=== PATIENT | female | born 1950 | race Caucasian/White ===

== ENCOUNTER → 2018-02-06 14:13 | Outpatient (CLI) | payer MEDICARE, BC, SELFPAY | PROVIDERS: Visit Provider Physician Assistant | DX: M81.0 Age-related osteoporosis without current pathological fracture (principal) | CPT/HCPCS: 77080 ==

== ENCOUNTER → 2021-12-20 12:08 | Outpatient (CLI) | payer MEDICARE, BC, SELFPAY | PROVIDERS: PCP Student in an Organized Health Care Education/Training Program; Referring Provider Student in an Organized Health Care Education/Training Program; Visit Provider Student in an Organized Health Care Education/Training Program | DX: M81.0 Age-related osteoporosis without current pathological fracture (principal); R06.9 Unspecified abnormalities of breathing; Z78.0 Asymptomatic menopausal state | CPT/HCPCS: 77080 ==

== ENCOUNTER 2022-06-22 22:37 | Emergency (ER) | payer MEDICARE, BC, SELFPAY ==
[2022-06-22 22:50] VITALS: BP 126/58; PULSE 87; RESP 20; TEMP 36.1; O2SAT 98; BMI 24.3
--- NOTE | 2022-06-22 23:07 | DI.RAD.S_ITS ---
PROCEDURE: XR CHEST 1V INDICATIONS: chest pain TECHNIQUE: One view of the chest was acquired. COMPARISON: None. FINDINGS: Surgical changes and devices: None. Lungs and pleura: Lungs are clear. No pleural effusions or pneumothorax. Mediastinum: Mediastinal contours appear normal. Heart size is normal. Bones and chest wall: No suspicious bony lesions. Overlying soft tissues appear unremarkable. IMPRESSION: 1. No acute cardiopulmonary disease. Dictated by: Junior Elliott M.D. on 06/23/2022 at 0:17 Approved by: Junior Elliott M.D. on 06/23/2022 at 0:18
[2022-06-22 23:28] LABS: Add Manual Diff / Slide Review NO; Basophils Absolute Auto 0 /uL (0-100); Basophils Percent Auto 0.6 % (0-2); Eosinophils Absolute Auto 0 /uL (0-450); Eosinophils Percent Auto 0.2 % (2-4); Hematocrit 40.9 % (36-46); Lymphocytes Absolute Auto 800 /uL (1100-4500); Lymphocytes Percent Auto 12.5 % (25-40); Mean Corpuscular HGB Conc 34.3 % (30-36); Mean Corpuscular Hemoglobin 30.9 PG (26-34); Mean Corpuscular Volume 90.1 fL (80-100); Monocytes Absolute Auto 300 /uL (0-900); Monocytes Percent Auto 4.1 % (3-14); Neutrophils Absolute Auto 5500 /uL (1500-7000); Neutrophils Percent Auto 82.6 % (50-75); Platelet Count 207 X10^3/uL (150-400); Red Blood Cell Count 4.54 X10^6/uL (4.0-5.2); Red Cell Distribution Width 14.2 % (11.6-14.8); White Blood Cell Count 6.7 X10^3/uL (4.5-11.0)
[2022-06-22 23:36] LABS: Alanine Aminotransferase 16 IU/L (<35); Albumin 4.7 g/dL (3.5-5.0); Albumin Globulin Ratio 1.4 (1.0-2.8); Alkaline Phosphatase 37 U/L (38-126); Aspartate Aminotransferase 25 IU/L (14-36); BUN Creatinine Ratio 29.2 (6-22); Bilirubin Total 0.5 mg/dL (0.2-1.3); Blood Urea Nitrogen 19 mg/dL (7-17); Calcium 9.2 mg/dL (8.4-10.2); Carbon Dioxide 23 mmol/L (22-32); Chloride 105 mmol/L (98-107); Creatine Kinase 54 U/L (30-135); Estimated Glomerular Filt Rate > 60 mL/min (>60); Globulin 3.4 g/dL (1.7-4.1); Glucose 132 mg/dL (80-110); HEMOLYSIS < 15 (0-50); Lipase 79 U/L (23-300); Potassium 3.5 mmol/L (3.4-5.1); Sodium 140 mmol/L (137-145); Total Protein 8.1 g/dL (6.3-8.2)
--- NOTE | 2022-06-22 23:45 | ED.DIZZY ---
HPI - Dizziness General Chief Complaint: Dizziness Stated Complaint: Vertigo Time Seen by Provider: 06/22/22 22:48 History of Present Illness HPI Narrative: 72-year-old female nonsmoker presents with her in the chief complaint of a sudden onset and profound dizziness earlier tonight. She has had episodes of dizziness in the past and has been diagnosed with vertigo and states this feels the same. She admits to dizziness in the sense that everything is spinning it seems to be worse when she moves her head or her body and improves when she remains still or closes her eyes. She denies blurred vision or trouble with speech. She denies any extremity numbness, tingling or weakness. She denies any recent trauma, head injury or neck pain. She is had no fever or chills and denies blood thinners. She denies blurred or double vision and has had no trouble with speech. She denies any recent trauma all, flights, scuba diving. She has had some nasal congestion and fullness in her ears for the better part of a month. She was seen and evaluated at another facility relatively recently and had been diagnosed with vertigo was given no prescriptions Related Data Home Medications Medication Instructions Recorded Confirmed BUTALB/ACETAMINOPHEN/CAFFEINE 1 cap PO ##0 03/28/17 50/300/40 (Fioricet 50/300/40 MG) alendronate 70 mg tablet (Fosamax) 70 mg PO QWEEK ##0 03/28/17 Previous Rx's Medication Instructions Recorded [ESTRADIOL VAG PEARLS] 25 mcg vaginal SEE INSTRUCTIONS 03/28/17 #18 tabs meclizine 25 mg tablet 25 mg PO BID-TID PRN dizziness #14 06/23/22 tabs ondansetron 4 mg disintegrating 4 mg PO TID-QID PRN nausea and 06/23/22 tablet vomiting #10 tabs Allergies Allergy/AdvReac Type Severity Reaction Status Date / Time cephalexin [CEPHALEXIN] Allergy Unknown Verified 06/22/22 23:03 codeine [CODEINE] Allergy Unknown Verified 06/22/22 23:03 levofloxacin [From LEVAQUIN] Allergy Unknown Verified 06/22/22 23:03 Review of Systems Review of Systems Narrative: GENERAL: Denies chills, fatigue, malaise, fever, sweats. HEENT: See HPI RESPIRATORY: Denies dyspnea, cough, wheezing, hemoptysis, sputum. CARDIOVASCULAR: Denies chest pain, palpitations, orthopnea, edema, GASTROINTESTINAL: Denies nausea, vomiting, abdominal pain, diarrhea, constipation, melena. : Denies dysuria, frequency, incontinence, hematuria, urinary retention. MUSCULOSKELETAL: denies weakness, joint pain, or bony pain SKIN: Denies rash, skin lesions, or other NEUROLOGIC: See HPI PSYCHIATRIC: No concerning psychosocial issues. 12 point review of systems is negative except for those stated above Patient History Social History Smoking Status: Never smoker Smoking Status: Never smoker Exam Narrative Exam Narrative: GENERAL: [72] year old patient appears stated age. Well-developed patient, in mild distress. GCS 15 HEAD: Atraumatic. Normocephalic. EYES: Pupils equal round and reactive. Extraocular motions intact. No scleral icterus. No injection or drainage. ENT: Nose without bleeding, purulent drainage. Throat without erythema, tonsillar hypertrophy or exudate. Airway patent. NECK: Trachea midline. Non tender CARDIOVASCULAR: Regular rate and rhythm without murmurs, gallops, or rubs. RESPIRATORY: Clear to auscultation. Breath sounds equal bilaterally. No wheezes, rales, or rhonchi. GASTROINTESTINAL: Abdomen soft, non-tender, nondistended. EXTREMITIES: No edema or joint tenderness. BACK: Nontender without deformity or crepitance. No flank tenderness. NEURO: AOx3. SKIN: No rash or erythema of visible areas Initial Vital Signs Initial Vital Signs: Vital Signs Temperature 97 F L 06/22/22 22:50 Pulse Rate 87 06/22/22 22:50 Respiratory Rate 20 06/22/22 22:50 Blood Pressure 126/58 L 06/22/22 22:50 Pulse Oximetry 98 06/22/22 22:50 Oxygen Delivery Method 06/22/22 22:50 Course Orders Ordered: ED Orders 06/22/22 23:07 XR chest 1V Stat 06/22/22 23:18 Complete Blood Count AUTO DIFF Stat Comprehensive Metabolic Panel Stat Lipase Stat Magnesium Stat Troponin & CK Cardiac Panel Stat 06/22/22 23:29 EKG-12 Lead Stat Discontinued Medications Sodium Chloride (Normal Saline 0.9%) 1,000 mls @ 1,000 mls/hr IV BOLUS ONE Stop: 06/23/22 01:02 Last Admin: 06/23/22 01:44 Dose: Not Given Documented By: GORGE Meclizine HCl (Meclizine Hcl 12.5 Mg Tablet) 50 mg PO NOW ONE Stop: 06/23/22 00:04 Last Admin: 06/23/22 01:36 Dose: 50 mg Documented By: GORGE Ondansetron HCl (Ondansetron 4 Mg/2 Ml Inj) 4 mg IV NOW ONE Stop: 06/23/22 00:04 Last Admin: 06/23/22 01:36 Dose: 4 mg Documented By: GORGE Ondansetron HCl (Ondansetron 4 Mg Odt Prepack) 1 bottle MISC SEEINSTR ONE Stop: 06/23/22 02:01 Last Admin: 06/23/22 02:08 Dose: 1 bottle Documented By: KELVIN Reevaluation(s) Reevaluation #1: Patient feeling significant if not complete resolution of symptoms after above-stated therapies. She is able to ambulate through the department without any ongoing dizziness or vertigo Vital Signs Vital signs: Vital Signs - 8 hr 06/22/22 22:50 Temperature 97 F L Pulse Rate 87 Respiratory Rate 20 Blood Pressure 126/58 L Pulse Oximetry 98 Oxygen Delivery Method Room Air MDM - Dizziness Lab Data Result diagrams: 06/22/22 23:18 06/22/22 23:18 Labs: Lab Results 06/22/22 06/22/22 Range/Units 23:18 23:18 WBC 6.7 (4.5-11.0) X10^3/uL RBC 4.54 (4.0-5.2) X10^6/uL Hgb 14.0 (12.0-16.0) g/dL Hct 40.9 (36-46) % MCV 90.1 (80-100) fL MCH 30.9 (26-34) PG MCHC 34.3 (30-36) % RDW 14.2 (11.6-14.8) % Plt Count 207 (150-400) X10^3/uL Neut % (Auto) 82.6 H (50-75) % Lymph % (Auto) 12.5 L (25-40) % [place] % (Auto) 4.1 (3-14) % Eos % (Auto) 0.2 L (2-4) % Baso % (Auto) 0.6 (0-2) % Neut # (Auto) 5500 (5743-6959) /uL Lymph # (Auto) 800 L (0601-0042) /uL [place] # (Auto) 300 (0-900) /uL Eos # (Auto) 0 (0-450) /uL Baso # (Auto) 0 (0-100) /uL Sodium 140 (137-145) mmol/L Potassium 3.5 (3.4-5.1) mmol/L Chloride 105 (98-107) mmol/L Carbon Dioxide 23 (22-32) mmol/L BUN 19 H (7-17) mg/dL Creatinine 0.65 (0.52-1.04) mg/dL Estimated GFR > 60 (>60) mL/min BUN/Creatinine Ratio 29.2 H (6-22) Glucose 132 H (80-110) mg/dL Calcium 9.2 (8.4-10.2) mg/dL Magnesium 2.0 (1.6-2.3) mg/dL Total Bilirubin 0.5 (0.2-1.3) mg/dL AST 25 (14-36) IU/L ALT 16 (<35) IU/L Alkaline Phosphatase 37 L (38-126) U/L Total Creatine Kinase 54 (30-135) U/L CK-MB (CK-2) TNP CK-MB (CK-2) Rel Index TNP Troponin I < 0.012 (0.01-0.034) ng/mL Total Protein 8.1 (6.3-8.2) g/dL Albumin 4.7 (3.5-5.0) g/dL Globulin 3.4 (1.7-4.1) g/dL Albumin/Globulin Ratio 1.4 (1.0-2.8) Lipase 79 (23-300) U/L MDM Narrative Medical decision making narrative: Patient has a very reassuring history and physical exam and complains of a reproducible profound dizziness that lasts about 1 minute and is improved with rest and closing eyes. She has no other neurologic symptoms. Symptoms significantly improved if not completely improved after typical therapies. Return precautions discussed and questions answered to her apparent satisfaction Discharge Plan Departure Patient Disposition: Home Clinical Impression: Vertigo Instructions: DI for Vertigo Activity Restrictions/Additional Instructions: *You have been diagnosed with [peripheral vertigo. As we discussed your history and physical exam as well as] *What to do: *Please continue to take your regular medications as directed. [ x] New medication prescriptions sent to your pharmacy: [[facility] ] [ ] New medication written as a paper prescription [ ] No new medications given *Please follow up with your primary care provider in 2-3 days, call for an appointment. Let them know you were seen in the Emergency Department and that we ask that you be seen in follow up. We will electronically transmit a record of today's note if your PCP is in our system * as we discussed I have given you the contact information for [facility], please call their office later today and let them know you were seen in the emergency department and we would like you seen in follow-up *Return to Emergency Department if you should have any new, worsening or concerning symptoms Prescriptions: New meclizine 25 mg tablet 25 mg PO BID-TID PRN (Reason: dizziness) Qty: 14 0RF ondansetron 4 mg tablet,disintegrating 4 mg PO TID-QID PRN (Reason: nausea and vomiting) Qty: 10 0RF No Action alendronate [Fosamax] 70 MG tablet 70 mg PO QWEEK Qty: 0 BUTALB/ACETAMINOPHEN/CAFFEINE 50/300/40 (Fioricet 50/300/40 MG) 1 cap PO Qty: 0 [ESTRADIOL VAG PEARLS] 25 mcg Vaginal SEE INSTRUCTIONS Qty: 18 PRNRF Referrals: Zonia Mike PA-C [Primary Care Provider] - Visit Report Forms: Patient Portal/API
[2022-06-22 23:47] LABS: Troponin I < 0.012 ng/mL (0.01-0.034)
[2022-06-23] MEDS: ONDANSETRON 4 MG/2 ML INJ IV (01:36)
[2022-06-23] MEDS: MECLIZINE HCL 12.5 MG TABLET 50 MG PO (01:36)
[2022-06-23] MEDS: ONDANSETRON 4 MG ODT PREPACK 1 BOTTLE MISC (02:08)
== END 2022-06-23 02:16 | disposition home or self-care (01) ==
PROVIDERS: Emergency Provider Emergency Medicine; PCP Student in an Organized Health Care Education/Training Program
DX: R42 Dizziness and giddiness (principal); R07.9 Chest pain, unspecified
CPT/HCPCS: 36415; 71045; 80053; 82550; 83690; 83735; 84484; 85025; 93005; 96374; 99284; J2405

== ENCOUNTER 2024-06-23 13:24 | Inpatient (IN) | payer MEDICARE, SELFPAY ==
[2024-06-23] VITALS (11 sets, daily range): BP systolic 121–143; BP diastolic 60–72; PULSE 76–97; RESP 12–24; TEMP 36.4–37.4; O2SAT 96–98; BMI 24.5
--- NOTE | 2024-06-23 13:35 | ED.LOWEXIN ---
HPI - Extremity Injury (Lower) General Chief Complaint: Extremity Injury, Lower Stated Complaint: GLF, L hip pain Time Seen by Provider: 06/23/24 13:24 History of Present Illness HPI Narrative: Patient is a 74-year-old female history of vertigo presenting today with left hip pain after fall. She reports that she was running to get similar when she tripped over garden hose landing on her left hip. She denies hitting her head or loss of consciousness no neck pain. She is unable to stand or bear weight. No other injuries. Not on any antiplatelet or antiplatelet medications Related Data Previous Rx's Medication Instructions Recorded meclizine 25 mg tablet 25 mg PO BID-TID PRN dizziness #14 06/23/22 tabs Allergies Allergy/AdvReac Type Severity Reaction Status Date / Time cephalexin [CEPHALEXIN] Allergy Unknown Verified 06/22/22 23:03 codeine [CODEINE] Allergy Unknown Verified 06/22/22 23:03 levofloxacin [From LEVAQUIN] Allergy Unknown Verified 06/22/22 23:03 Patient History Social History household members: spouse Smoking Status: Never smoker alcohol intake: current Smoking Status: Never smoker Exam Initial Vital Signs Initial Vital Signs: Vital Signs Temperature 97.5 F L 06/23/24 13:25 Pulse Rate 79 06/23/24 13:25 Respiratory Rate 16 06/23/24 13:25 Blood Pressure 140/72 06/23/24 13:25 Pulse Oximetry 97 06/23/24 13:25 Oxygen Delivery Method Room Air 06/23/24 13:25 GENERAL: Alert pleasant well-appearing 74-year-old female HEENT: Head atraumatic,EOMI, pupils reactive, face symmetric, [moist] mucous membranes CARDIOVASCULAR: Regular rate and rhythm without murmurs, rubs or gallops. RESPIRATORY: Breath sounds equal bilaterally, no wheezes rales or rhonchi. ABDOMEN: Soft, nontender. Normoactive bowel sounds all 4 quadrants. No guarding or rebound. EXTREMITIES: Normal range of motion, no clubbing or edema. Neurovascularly intact Pelvis stable right leg within normal limits left no significant shortening distal pedal pulse intact NEUROLOGICAL: Alert and oriented x4. Neurovascularly intact moving all extremities SKIN: Warm, dry, no laceration, no petechiae, no rashes or lesions. Course Orders Ordered: ED Orders 06/23/24 13:35 XR hip w pel if done LT 2V Stat 06/23/24 13:36 EKG-12 Lead Stat 06/23/24 13:50 CBC Auto Diff [Complete Blood Count AUTO DIFF] Stat CMP [Comprehensive Metabolic Panel] Stat Troponin & CK Cardiac Panel Stat Acetaminophen (Acetaminophen 325 Mg Tablet) 650 mg PO Q6H PRN PRN Reason: Fever/Mild Pain (1-3) Last Admin: 06/23/24 17:31 Dose: 650 mg Documented By: EDVIN Hydromorphone HCl (Hydromorphone 1 Mg Inj) 0.5 mg IV Q2H PRN PRN Reason: Pain, Severe (7-10) Last Admin: 06/23/24 16:13 Dose: 0.5 mg Documented By: JOSE Naloxone HCl (Naloxone 0.4 Mg/Ml Vial) 0.2 mg IV Q2MIN PRN PRN Reason: Opiate Reversal Ondansetron HCl (Ondansetron 4 Mg/2 Ml Inj) 4 mg IV Q8HR PRN PRN Reason: Nausea And Vomiting Oxycodone HCl (Oxycodone Ir 5 Mg Tablet) 5 mg PO Q3H PRN PRN Reason: Pain, Moderate (4-6) Last Admin: 06/23/24 17:31 Dose: 5 mg Documented By: EDVIN Discontinued Medications Hydromorphone HCl (Hydromorphone 0.5 Mg Inj) 0.5 mg IV Q2H PRN PRN Reason: Pain, Severe (7-10) Morphine Sulfate (Morphine 2 Mg/Ml Inj) 2 mg IV NOW ONE Stop: 06/23/24 14:23 Last Admin: 06/23/24 14:53 Dose: 2 mg Documented By: JERALD Ondansetron HCl (Ondansetron 4 Mg/2 Ml Inj) 4 mg IV NOW ONE Stop: 06/23/24 14:47 Last Admin: 06/23/24 14:52 Dose: 4 mg Documented By: JERALD Vital Signs Vital signs: Vital Signs - 8 hr 06/23/24 13:25 06/23/24 13:29 06/23/24 13:30 Temperature 97.5 F L Pulse Rate 79 83 79 Pulse Rate [Bilateral Dorsalis Pedis] Respiratory Rate 16 12 12 Blood Pressure 140/72 136/64 121/60 Pulse Oximetry 97 97 98 Oxygen Delivery Method Room Air 06/23/24 13:45 06/23/24 14:30 Temperature Pulse Rate 76 Pulse Rate [Bilateral Dorsalis Pedis] 80 Respiratory Rate 12 Blood Pressure Pulse Oximetry 96 Oxygen Delivery Method MDM - Extremity Injury (Lower) Lab Data 06/23/24 13:50 06/23/24 13:50 Labs: Lab Results 06/23/24 Range/Units 13:50 WBC 7.9 (4.5-11.0) X10^3/uL RBC 4.51 (4.0-5.2) X10^6/uL Hgb 13.6 (12.0-16.0) g/dL Hct 40.9 (36-46) % MCV 90.7 (80-100) fL MCH 30.3 (26-34) PG MCHC 33.4 (30-36) % RDW 14.7 (11.6-14.8) % Plt Count 197 (150-400) X10^3/uL Neut % (Auto) 64.6 (50-75) % Lymph % (Auto) 26.7 (25-40) % [place] % (Auto) 6.8 (3-14) % Eos % (Auto) 1.3 L (2-4) % Baso % (Auto) 0.6 (0-2) % Neut # (Auto) 5100 (3160-7210) /uL Lymph # (Auto) 2100 (7142-7764) /uL [place] # (Auto) 500 (0-900) /uL Eos # (Auto) 100 (0-450) /uL Baso # (Auto) 0 (0-100) /uL Sodium 138 (137-145) mmol/L Potassium 3.9 (3.4-5.1) mmol/L Chloride 108 H (98-107) mmol/L Carbon Dioxide 21 L (22-32) mmol/L BUN 20 H (7-17) mg/dL Creatinine 0.69 (0.52-1.04) mg/dL Estimated GFR > 60 (>60) mL/min BUN/Creatinine Ratio 29.0 H (6-22) Glucose 126 H (80-110) mg/dL Calcium 9.4 (8.4-10.2) mg/dL Total Bilirubin 0.5 (0.2-1.3) mg/dL AST 27 (14-36) IU/L ALT 20 (<35) IU/L Alkaline Phosphatase 54 (38-126) U/L Total Creatine Kinase 58 (30-135) U/L Troponin I < 0.012 (0.01-0.034) ng/mL Total Protein 7.2 (6.3-8.2) g/dL Albumin 4.4 (3.5-5.0) g/dL Globulin 2.8 (1.7-4.1) g/dL Albumin/Globulin Ratio 1.6 (1.0-2.8) Imaging Data Extremity x-ray #1: Radiologist's Impression: PROCEDURE: XR HIP W PEL IF DONE LT 2V INDICATIONS: fall pain TECHNIQUE: 2 views of the hip were acquired. COMPARISON: None. FINDINGS: Bones: Transcervical fracture through the left femoral neck. Soft tissues: No suspicious soft tissue calcifications or masses. IMPRESSION: Transcervical fracture through the left femoral neck. Dictated by: Herbie Rogel M.D. on 06/23/2024 at 14:21 ECG Data Attestation: I personally reviewed and interpreted this ECG as follows: Prior ECG tracings: available for review Interpretation: Normal sinus rhythm rate 72 [place] interval 176 QRS [address] changes MDM Narrative Medical decision making narrative: Patient j carlos 74-year-old female who presents today with left hip pain. Since it was mechanical fall. No other injury. She is found to have a left femoral neck fracture. Blood work has been reviewed: No leukocytosis or anemia, electrolyte within normal limits creatinine 0.69 glucose 126 X-ray reviewed for Reglan femoral neck fracture EKG reviewed Dr. Kramer reviewed images updated on patient's symptoms test results reports that patient will likely have surgery tomorrow Dr. Oneil accepts patient Discharge Plan Departure Patient Disposition: Admitted As Inpatient Clinical Impression: Closed fracture of left hip Admit Date/Time: 06/23/24 14:42 Admit Provider: Ham Oneil
--- NOTE | 2024-06-23 13:55 | EKG_ITS ---
[facility] [address] [place] [address] Test Date: 2024-06-23 Pat Name: Margaux Craig Department: [facility] Room: Gender: Female [place]: ROSE : [id number] Requested By: Order Number: [id number] Reading MD: Fredy Vogel MD Measurements Intervals [place] Rate: 72 P: 59 MO: 176 QRS: 24 QRSD: 80 T: 23 QT: 386 QTc: 422 Interpretive Statements Normal sinus rhythm Low voltage QRS Nonspecific ST abnormality Electronically Signed On 06-24-2024 7:29:24 PDT by Fredy Vogel MD
[2024-06-23 14:07] LABS: Add Manual Diff / Slide Review NO; Basophils Absolute Auto 0 /uL (0-100); Basophils Percent Auto 0.6 % (0-2); Eosinophils Absolute Auto 100 /uL (0-450); Eosinophils Percent Auto 1.3 % (2-4); Hematocrit 40.9 % (36-46); Hemoglobin 13.6 g/dL (12.0-16.0); Lymphocytes Absolute Auto 2100 /uL (1100-4500); Lymphocytes Percent Auto 26.7 % (25-40); Mean Corpuscular HGB Conc 33.4 % (30-36); Mean Corpuscular Hemoglobin 30.3 PG (26-34); Mean Corpuscular Volume 90.7 fL (80-100); Monocytes Absolute Auto 500 /uL (0-900); Monocytes Percent Auto 6.8 % (3-14); Neutrophils Absolute Auto 5100 /uL (1500-7000); Neutrophils Percent Auto 64.6 % (50-75); Platelet Count 197 X10^3/uL (150-400); Red Blood Cell Count 4.51 X10^6/uL (4.0-5.2); Red Cell Distribution Width 14.7 % (11.6-14.8); White Blood Cell Count 7.9 X10^3/uL (4.5-11.0)
[2024-06-23 14:23] LABS: Alanine Aminotransferase 20 IU/L (<35); Albumin 4.4 g/dL (3.5-5.0); Albumin Globulin Ratio 1.6 (1.0-2.8); Alkaline Phosphatase 54 U/L (38-126); Aspartate Aminotransferase 27 IU/L (14-36); Bilirubin Total 0.5 mg/dL (0.2-1.3); Blood Urea Nitrogen 20 mg/dL (7-17); Calcium 9.4 mg/dL (8.4-10.2); Carbon Dioxide 21 mmol/L (22-32); Chloride 108 mmol/L (98-107); Creatine Kinase 58 U/L (30-135); Estimated Glomerular Filt Rate > 60 mL/min (>60); Globulin 2.8 g/dL (1.7-4.1); Glucose 126 mg/dL (80-110); HEMOLYSIS < 15 (0-50); Potassium 3.9 mmol/L (3.4-5.1); Sodium 138 mmol/L (137-145); Total Protein 7.2 g/dL (6.3-8.2)
[2024-06-23 14:35] LABS: Troponin I < 0.012 ng/mL (0.01-0.034)
[2024-06-23] MEDS: ONDANSETRON 4 MG/2 ML INJ IV (14:52)
[2024-06-23] MEDS: MORPHINE 2 MG/ML INJ IV (14:53)
--- NOTE | 2024-06-23 15:20 | PM.HP.1 ---
History of Present Illness History of Present Illness Date Patient Seen: 06/23/24 Chief complaint: GLF, L hip pain Narrative: The patient is a 74-year-old female with a past history of vertigo who fell today. She was moving quickly and then tripped over a garden hose and landed on her left hip. She had immediate pain and inability to get up, move or stand. She was brought to the emergency department where a radiograph confirmed a left hip fracture. Orthopedics was consulted, they have confirmed repair tomorrow, June 24. The patient was given pain medication in the emergency department has no other apparent injuries. She was no history of headache or neck pain. She does take alendronate for osteoporosis 70 mg weekly. She does have a history of vertigo and takes occasional meclizine for this problem. ED course: Pain medications were given and imaging confirmed hip fracture, Orthopedics was consulted. She has good pain control upon transfer to the floor. [facility] Social History Smoking Status: Never smoker Meds Home Medications and Allergies Home Medications Medication Instructions Recorded Confirmed Type meclizine 25 mg tablet 25 mg PO BID-TID PRN dizziness #14 06/23/22 06/23/24 Rx tabs Allergies Allergy/AdvReac Type Severity Reaction Status Date / Time cephalexin [CEPHALEXIN] Allergy Unknown Verified 06/22/22 23:03 codeine [CODEINE] Allergy Unknown Verified 06/22/22 23:03 levofloxacin [From LEVAQUIN] Allergy Unknown Verified 06/22/22 23:03 Review of Systems Review of Systems Narrative: All else reviewed and otherwise unremarkable except as noted in the history and physical. Exam Vital Signs (past 8 hours): - 06/23/24 13:25 06/23/24 13:45 Temperature 97.5 F L Pulse Rate 79 Pulse Rate [Bilateral Dorsalis Pedis] 80 Respiratory Rate 16 Blood Pressure 140/72 Pulse Oximetry 97 Oxygen Delivery Method Room Air Oxygen Delivery Method Room Air Narrative Exam Narrative: NAD, alert and oriented, fluent speech, calm. Normocephalic skull, EOMI, anicteric sclera, symmetric pupils. Oropharynx unremarkable, no droop. Neck supple, midline trachea, no adenopathy. Lungs clear, normal rate and effort. Heart regular, no murmur gallop or rub. Abdomen is soft, non distended and non tender. Extremities are free of edema. Skin is free of rash or lesions. Joints are not swollen or deformed. Judgment appears to be normal. Objective ECG Impression: Normal sinus rhythm Low voltage QRS Nonspecific ST abnormality Imaging Hip Xray:: Radiologist's impression: Transcervical fracture through the left femoral neck. Labs 06/23/24 13:50 06/23/24 13:50 Labs: Laboratory Results - last 24 hr 06/23/24 13:50 WBC 7.9 RBC 4.51 Hgb 13.6 Hct 40.9 MCV 90.7 MCH 30.3 MCHC 33.4 RDW 14.7 Plt Count 197 Neut % (Auto) 64.6 Lymph % (Auto) 26.7 [place] % (Auto) 6.8 Eos % (Auto) 1.3 L Baso % (Auto) 0.6 Neut # (Auto) 5100 Lymph # (Auto) 2100 [place] # (Auto) 500 Eos # (Auto) 100 Baso # (Auto) 0 Sodium 138 Potassium 3.9 Chloride 108 H Carbon Dioxide 21 L BUN 20 H Creatinine 0.69 Estimated GFR > 60 BUN/Creatinine Ratio 29.0 H Glucose 126 H Calcium 9.4 Total Bilirubin 0.5 AST 27 ALT 20 Alkaline Phosphatase 54 Total Creatine Kinase 58 Troponin I < 0.012 Total Protein 7.2 Albumin 4.4 Globulin 2.8 Albumin/Globulin Ratio 1.6 Assessment & Plan Assessment & Plan narrative: 1. Ground level fall, prior to admission. 2. Left femoral neck fracture, present on admission and active. 3. Osteoporosis, present on admission and active. 4. Intermittent vertigo, present on admission and not active. Plan: -analgesia -orthopedic consultation for operative repair on June 24. -NPO at midnight. -DVT prophylaxis after surgery he will be aspirin b.i.d. unless indicated otherwise by Orthopedics. NESSA: 06/25. Full code. Inpatient status, a 2 MN stay is expected. Time-Based Coding :: 35 min spent with patient and on the chart (including review of chart, obtaining history, exam, reviewing outside data, placing orders, documenting exam and treatment plan, and counseling patient) on 06/23. Quality MIPS - Admit I confirm the patient?s Advance Care Plan is present, Code status is documented, Surrogate decision maker is in patient?s record [If Yes, STOP here]: Yes MIPS - Meds 'Current medications' to include all prescriptions, [id number] products, herbals, cannabis/cannabidiol products, and vitamin/mineral/dietary (nutritional) supplements. I have utilized all available resources to obtain, update, or review the patient?s current medications. [If Yes, STOP here]: Yes
[2024-06-23] MEDS: HYDROMORPHONE 1 MG INJ 0.5 MG IV ×2 (16:13→19:57)
[2024-06-23] MEDS: ACETAMINOPHEN 325 MG TABLET 650 MG PO (17:31)
[2024-06-23] MEDS: OXYCODONE IR 5 MG TABLET PO (17:31)
[2024-06-24] VITALS (18 sets, daily range): BP systolic 83–119; BP diastolic 37–75; PULSE 2–90; RESP 13–24; TEMP 36.5–37.4; O2SAT 93–97; BMI 24.5
--- NOTE | 2024-06-24 | DI.RAD.S_ITS ---
PROCEDURE: XR PELVIS 1-2V INDICATIONS: INTRAOP LEFT POSTERIOR EZE HIP TECHNIQUE: Intra-operative view of the pelvis and hip acquired. COMPARISON: [facility], CR, XR HIP W PEL IF DONE LT 2V, 06/23/2024, 13:48. FINDINGS: Bones: Intraoperative devices prior to placement of arthroplasty prostheses are in expected positions. No fractures or suspicious bony lesions. Soft tissues: Overlying surgical retractors are present, along with other intraoperative changes. IMPRESSION: Surgical changes reflecting left hip arthroplasty Dictated by: Alba Hammonds M.D. on 06/24/2024 at 14:08 Approved by: Alba Hammonds M.D. on 06/24/2024 at 14:09
--- NOTE | 2024-06-24 | DI.RAD.S_ITS ---
PROCEDURE: XR HIP W PEL IF DONE LT 2V INDICATIONS: POST OP LEFT HIP TECHNIQUE: AP pelvis and lateral view of the hip acquired. COMPARISON: [facility], [place], XR HIP W PEL IF DONE LT 2V, 06/23/2024, 13:48. FINDINGS: Bones: Patient is status post left hip arthroplasty, with hardware components in expected positions. The hip joint appears congruent. The visualized bony structures appear intact. Soft tissues: Overlying postoperative changes are noted. No suspicious soft tissue densities. IMPRESSION: Expected post-operative appearance of a hip arthroplasty. Dictated by: Leonardo Shi M.D. on 06/24/2024 at 15:23 Approved by: Leonardo Shi M.D. on 06/24/2024 at 15:24
[2024-06-24] MEDS: HYDROMORPHONE 1 MG INJ 0.5 MG IV ×2 (01:49→08:29)
[2024-06-24] MEDS: OXYCODONE IR 5 MG TABLET PO ×3 (03:54→21:19)
[2024-06-24 06:28] LABS: Add Manual Diff / Slide Review NO; Basophils Absolute Auto 0 /uL (0-100); Basophils Percent Auto 0.3 % (0-2); Eosinophils Absolute Auto 100 /uL (0-450); Eosinophils Percent Auto 1.1 % (2-4); Hematocrit 39.1 % (36-46); Hemoglobin 13.3 g/dL (12.0-16.0); Lymphocytes Absolute Auto 1400 /uL (1100-4500); Lymphocytes Percent Auto 15.6 % (25-40); Mean Corpuscular Hemoglobin 30.5 PG (26-34); Mean Corpuscular Volume 89.8 fL (80-100); Monocytes Absolute Auto 800 /uL (0-900); Monocytes Percent Auto 8.9 % (3-14); Neutrophils Absolute Auto 6900 /uL (1500-7000); Neutrophils Percent Auto 74.1 % (50-75); Platelet Count 182 X10^3/uL (150-400); Red Blood Cell Count 4.35 X10^6/uL (4.0-5.2); Red Cell Distribution Width 14.4 % (11.6-14.8); White Blood Cell Count 9.3 X10^3/uL (4.5-11.0)
[2024-06-24 06:40] LABS: BUN Creatinine Ratio 23.7 (6-22); Blood Urea Nitrogen 18 mg/dL (7-17); Carbon Dioxide 23 mmol/L (22-32); Chloride 106 mmol/L (98-107); Estimated Glomerular Filt Rate > 60 mL/min (>60); Glucose 105 mg/dL (80-110); HEMOLYSIS < 15 (0-50); Potassium 3.5 mmol/L (3.4-5.1); Sodium 135 mmol/L (137-145)
--- NOTE | 2024-06-24 07:37 | PM.PN.1 ---
Subjective Subjective Interval history: S: The patient is postop and is doing well. She was a little hypotensive and did receive a L of fluid. She has a little bit of nausea. She was a fair amount of hip pain as well. Exam Vital Signs (past 8 hours): - 06/24/24 04:00 Temperature 98.3 F Pulse Rate 71 Respiratory Rate 16 Blood Pressure 118/66 Pulse Oximetry 95 Oxygen Flow Rate 0 Oxygen Delivery Method Room Air Oxygen Flow Rate 0 Narrative Exam Narrative: NAD, alert and oriented. Fluent speech. Slightly sedated. Lungs are clear, normal rate and effort. Heart is regular, no murmur gallop or rub. Abdomen is soft, non distended. Extremities are free of edema. Objective Labs 06/24/24 05:57 06/24/24 05:57 Labs: Laboratory Results - last 24 hr 06/23/24 06/24/24 13:50 05:57 WBC 7.9 9.3 RBC 4.51 4.35 Hgb 13.6 13.3 Hct 40.9 39.1 MCV 90.7 89.8 MCH 30.3 30.5 MCHC 33.4 34.0 RDW 14.7 14.4 Plt Count 197 182 Neut % (Auto) 64.6 74.1 Lymph % (Auto) 26.7 15.6 L [place] % (Auto) 6.8 8.9 Eos % (Auto) 1.3 L 1.1 L Baso % (Auto) 0.6 0.3 Neut # (Auto) 5100 6900 Lymph # (Auto) 2100 1400 [place] # (Auto) 500 800 Eos # (Auto) 100 100 Baso # (Auto) 0 0 Sodium 138 135 L Potassium 3.9 3.5 Chloride 108 H 106 Carbon Dioxide 21 L 23 BUN 20 H 18 H Creatinine 0.69 0.76 Estimated GFR > 60 > 60 BUN/Creatinine Ratio 29.0 H 23.7 H Glucose 126 H 105 Calcium 9.4 9.0 Total Bilirubin 0.5 AST 27 ALT 20 Alkaline Phosphatase 54 Total Creatine Kinase 58 Troponin I < 0.012 Total Protein 7.2 Albumin 4.4 Globulin 2.8 Albumin/Globulin Ratio 1.6 PFSH Social History household members: spouse Smoking Status: Never smoker alcohol intake: current Assessment & Plan Assessment & Plan narrative: 1. Ground level fall, prior to admission. 2. Left femoral neck fracture, present on admission and active. 3. Osteoporosis, present on admission and active. 4. Intermittent vertigo, present on admission and not active. 5. Postoperative hypotension, new and active. Plan: -analgesia -Operative repair on June 24. -IV fluid bolus and monitor pressures. -monitor hemoglobin.. -DVT prophylaxis after surgery he will be aspirin b.i.d. unless indicated otherwise by Orthopedics. NESSA: 06/26. Full code. Inpatient status, a 2 [place] stay is expected. Time-Based Coding :: [TOTAL MINUTES] spent with patient and on the chart (including review of chart, obtaining history, exam, reviewing outside data, placing orders, documenting exam and treatment plan, and counseling patient) on [DATE].
--- NOTE | 2024-06-24 08:04 | DI.RAD.S_ITS ---
PROCEDURE: XR ANKLE RT MIN 3V INDICATIONS: right ankle injury TECHNIQUE: 3 views of the ankle were acquired. COMPARISON: None. FINDINGS: Bones: No fractures or dislocations. Ankle mortise is normally aligned. No suspicious bony lesions. Small posterior calcaneal spur. Soft tissues: No tibiotalar joint effusion. Achilles tendon appears normal. IMPRESSION: No acute osseous abnormality Dictated by: Leonardo Shi M.D. on 06/24/2024 at 10:55 Approved by: Leonardo Shi M.D. on 06/24/2024 at 10:59
--- NOTE | 2024-06-24 08:05 | PM.PREOP ---
Pre-operative Note Interval Note History & Physical reviewed/Exam performed by Physician: Yes Changes to H&P: No H&P completed within 30 days and has changed as indicated here:: some right ankle pain and low back pain
[2024-06-24] MEDS: LACTATED RINGERS 1,000 ML 42 ML IV ×3 (08:30→15:04)
[2024-06-24] MEDS: VANCOMYCIN 1,000 MG/200 ML PIGGYBACK 200 MG IV ×2 (10:14→23:01)
--- NOTE | 2024-06-24 10:59 | PM.HP.1 ---
History of Present Illness History of Present Illness Date Patient Seen: 06/24/24 Time Patient Seen: 08:00 Date of Onset of Symptoms: 06/23/24 Chief complaint: GLF, L hip pain Narrative: Pleasant 74-year-old female who is pretty physically active she walks about 3 miles a couple times a week. She was running are trying to jog lightly and she tripped and fell she landed on her left hip. She noted the acute onset of severe left hip pain. She also notes some increased right ankle pain. She does have a history of a ground level fall a few months ago when she injured her right hip with a bruise and sprained her right ankle. She has had some persistent right ankle pain since then. She did not have a loss of consciousness. She did not need jets chest pain was not short of breath or have any other problems prior to the fall. She is normally fairly physically active. She also enjoys quilting. [facility] Social History household members: spouse Smoking Status: Never smoker alcohol intake: current Meds Home Medications and Allergies Home Medications Medication Instructions Recorded Confirmed Type meclizine 25 mg tablet 25 mg PO BID-TID PRN dizziness #14 06/23/22 06/23/24 Rx tabs Allergies Allergy/AdvReac Type Severity Reaction Status Date / Time cephalexin [CEPHALEXIN] Allergy Unknown Verified 06/22/22 23:03 codeine [CODEINE] Allergy Unknown Verified 06/22/22 23:03 levofloxacin [From LEVAQUIN] Allergy Unknown Verified 06/22/22 23:03 Review of Systems Review of Systems Narrative: No problems prior to the fall, she walks about 3 miles a couple of times a week. No chest pain no cardiac problems, she has never had a surgery no family history of problems with surgery Exam Vital Signs (past 8 hours): - 06/24/24 04:00 06/24/24 08:00 06/24/24 10:09 Temperature 98.3 F 98.1 F 98 F Pulse Rate 71 80 83 Respiratory Rate 16 14 16 Blood Pressure 118/66 119/64 112/75 Pulse Oximetry 95 96 97 Oxygen Delivery Method Room Air Oxygen Flow Rate 0 0 Oxygen Delivery Method Room Air Oxygen Flow Rate 0 Narrative Exam Narrative: HEENT is benign, lungs are clear cor regular rate and rhythm abdomen soft and benign examination of the left lower extremity shows external rotation marked pain with range of motion, she is able to fire toe flexors and extensors and has sensation in her foot, her right ankle has tenderness along the medial aspect of the right ankle and deltoid ligament, she does have some pain in the spine Objective Labs 06/24/24 05:57 06/24/24 05:57 Labs: Laboratory Results - last 24 hr 06/23/24 06/24/24 13:50 05:57 WBC 7.9 9.3 RBC 4.51 4.35 Hgb 13.6 13.3 Hct 40.9 39.1 MCV 90.7 89.8 MCH 30.3 30.5 MCHC 33.4 34.0 RDW 14.7 14.4 Plt Count 197 182 Neut % (Auto) 64.6 74.1 Lymph % (Auto) 26.7 15.6 L [place] % (Auto) 6.8 8.9 Eos % (Auto) 1.3 L 1.1 L Baso % (Auto) 0.6 0.3 Neut # (Auto) 5100 6900 Lymph # (Auto) 2100 1400 [place] # (Auto) 500 800 Eos # (Auto) 100 100 Baso # (Auto) 0 0 Sodium 138 135 L Potassium 3.9 3.5 Chloride 108 H 106 Carbon Dioxide 21 L 23 BUN 20 H 18 H Creatinine 0.69 0.76 Estimated GFR > 60 > 60 BUN/Creatinine Ratio 29.0 H 23.7 H Glucose 126 H 105 Calcium 9.4 9.0 Total Bilirubin 0.5 AST 27 ALT 20 Alkaline Phosphatase 54 Total Creatine Kinase 58 Troponin I < 0.012 Total Protein 7.2 Albumin 4.4 Globulin 2.8 Albumin/Globulin Ratio 1.6 X-rays show a displaced left femoral neck fracture, right ankle x-rays do not show evidence of a fracture Assessment & Plan Assessment and plan (1) Closed fracture of left hip: Status: Acute (2) Right ankle sprain: Status: Acute (3) Low back pain: Status: Acute Plan I have recommended a left hip unipolar versus possible total hip arthroplasty. She normally is an active community ambulator. She does have a history of multiple falls. She has had a significant left hip pain and has a displaced left femoral neck fracture. I also think she needs a course of physical therapy postoperatively as she has had some chronic problems also with a right ankle sprain. I anticipate discharge to home likely tomorrow. The procedure options risks benefits and complications were discussed in detail. Complications including but not limited to bleeding, infection, instability, intraoperative fracture, infection, and multiple medical problems were discussed in detail. She understands and agrees and consents to surgery. Time-Based Coding :: [TOTAL MINUTES] spent with patient and on the chart (including review of chart, obtaining history, exam, reviewing outside data, placing orders, documenting exam and treatment plan, and counseling patient) on [DATE].
[2024-06-24] MEDS: CLINDAMYCIN 900 MG/50 ML PIGGYBACK 50 MG IV (11:24)
[2024-06-24] MEDS: TRANEXAMIC ACID 1,000 MG in SODIUM CHLORIDE 0.9% 100 ML 200 MG IV ×2 (11:30→13:46)
--- NOTE | 2024-06-24 11:45 | SUR.OPER ---
Lateral on padded OR bed. Gel axillary roll. Arms secured on padded armboard with pillow supporting top arm. Padded hip positioner braces x4 - anterior and posterior chest and pelvis. Additional gel pad used anterior pelvis. Gel pad under bottom leg from knee to foot and secured with tape over sheet.
[2024-06-24] MEDS: BUPIVACAINE 0.5% W/ EPI (PF) 30 ML VIAL INJ (11:50)
[2024-06-24] MEDS: BUPIVACAINE LIPOSOME 266 MG/20 ML VIAL INJ (11:51)
[2024-06-24] MEDS: EPINEPHrine 1 MG/ML TOP (13:44)
--- NOTE | 2024-06-24 15:08 | SUR.PHASEI ---
Report called to Clare.
--- NOTE | 2024-06-24 16:42 | CM.DANOTE ---
Initial DCP Assessment Note Pt is a 74 yo female, resident of [place], arrives after GLF with subsequent hip fx, needing surgical repair. PCP: Zonia Mike Payer: ALESSANDRO/Marlee MCLAIN Reviewed chart, met w/patient's spouse while patient in the OR, introduced self and role. Patient is indp and active at baseline, has never had an injury or surgery like this, no hx of HH or SNF. Spouse hopeful patient can return home. Explained more will be known after therapy evals and recommendations 06/25. Spouse states understanding. CM team following closely for therapy recommendations and discharge coordination. LATRELL Montaño Discharge Planning/Care Management CM Discharge Assessment Start: 06/24/24 16:34 Freq: Status: Active Protocol: Document 06/24/24 16:34 ANNIKA (Rec: 06/24/24 16:42 ANNIKA [id number]) Discharge Planning Assessment Assigned Final Inspector LATRELL Chacon DPOA/Assigned Designee Name Gurpreet Perrin, spouse Contact Information [phone] Advance Directives? No History Provided By Significant Other Prior Living Arrangements House Household Members spouse Type of transporation used prior to Drives own vehicle admit Independent with ADL's Yes Is patient alert and oriented? Yes Patient/Family Preference Home with Home Health Comment TBD Discharge Plan Home Transportation Arrangement Family Additional Comment TBD
[2024-06-24] MEDS: LACTATED RINGERS 1,000 ML 100 ML IV (17:08)
[2024-06-24] MEDS: ACETAMINOPHEN 325 MG TABLET 650 MG PO (17:08)
--- NOTE | 2024-06-24 17:44 | PM.OP.1 ---
Operative Date/Time/Diagnoses Date of procedure: 06/24/24 Time of procedure: 11:00 Pre-op diagnosis: Left femoral neck fracture Post-op diagnosis: same Procedure & Clinicians Procedure: Left total hip arthroplasty posterior approach Same procedure as scheduled: Yes Indications: She is an active community walker and walks a couple of miles a couple of times a week. She fell and sustained a displaced left femoral neck fracture. She was brought to the operating room with a plan for unipolar replacement versus Total hip replacement. Because of her activities and overall lifestyle she was felt to be an appropriate candidate for hip replacement instead of partial hip replacement. The risks, benefits and alternatives to surgery were discussed with the patient prior to proceeding. Risks discussed included, but were not limited to, failure to relieve pain, leg length discrepancy, dislocation, stiffness, infection, nerve damage, deep venous thrombosis, pulmonary embolism, stroke, coma, heart attack, permanent paralysis and , as well as the potential need for eventual revision of the prosthetic. Surgeon: Chasity Almanzar Vegetable Cook: Justino Diego Anesthesia Type: General and Spinal Operative Notes Findings: Displaced left femoral neck fracture. Extremely small femoral head 41. Adequate stability adequate bone Closure Type: primary Specimen(s): none sent Prosthetic devices, grafts, tissues, transplants, or devices: Almanzar and nephew size 42 R3 cup, neutral poly liner,one 6.5 mm screw, size 9 cemented Synergy stem, small canal bone plug, 22 x +0 Oxinium femoral head Estimated Blood Loss (mL): 250 Procedure in detail: The patient was seen in the pre-operative area, where the patient identified the left hip as the operative site and this was marked with my initials. The patient received pre-operative antibiotics and was taken to the operating room and placed on the operative table in the right lateral decubitus position after satisfactory anesthesia. A customer pricing manager out was performed. The left leg was prepared from the ankle to the iliac crest with ChloroPrep in the usual fashion and draped through sterile drapes. A PA was used during the procedure and was essential for intraoperative retraction and safe implantation of the components. The hip was approached through an approximately 20 cm incision centered over the greater trochanter and curving gently posteriorly as it went proximally. She had a large hematoma in her subcutaneous tissues over her left hip. It was meticulously cleaned and hemostasis was achieved. The incision was carried sharply to the fascia sander, which was divided and retracted with a self retaining retractor. The trochanteric bursa was excised with care being taken to avoid the sciatic nerve, which was identified and protected throughout the case. The short external rotators were incised and the capsulomuscular flap was raised and tagged for later repair. The hip was examined. There was a crack along the femoral neck which extended into the region of the lesser trochanter. A femoral neck osteotomy performed approximately 15 mm above the lesser trochanter along the residual neck just distal to the majority of fracture. Multiple fracture fragments were removed. The femoral head was then carefully removed. The femoral head was sized it was extremely small was a size 41. Retractors were placed around the femur. The canal was opened with a box cutting osteotome, followed by a T handled reamer and a lateralizing reamer. The chili pepper broach was then used, followed by sequential broaching until there was good stability of the broach in the femur. The acetabulum was meticulously checked. There was some mild arthritic change in the acetabulum and based on the patient's overall activity level it was felt that she was better served with a total hip arthroplasty. Retractors were placed to expose the acetabulum. The labrum and central soft tissues were removed. Reaming was performed initially going up in 1 mm increments until good bite was obtained with an odd sized reamer. She had a tiny acetabulum. The cup 1 mm larger than the last reamer was then inserted using the appropriate anteversion guides. It was quite difficult to get the acetabular liner to seat well. It was eventually seated adequately. A trial neutral liner was placed. The broach was placed in the canal. A trial head and neck were then placed and the hip relocated and checked for leg length and stability. An intraoperative film confirmed the component position and no evidence of fracture. The patient was stable in the position of sleep, of squatting, and could be put through a range of motion with 45 degrees internal rotation without dislocation. At 90 degrees flexion, internal rotation to 80? was possible before dislocation. This was felt to be satisfactory and the appropriate components were opened, and the trials were removed. The acetabular liner was impacted into position. A distal cement restrictor was placed. We carefully trimmed all of the side tines off of the cement restrictor as her canal was about a size 8. The final stem was then cemented into the prepared femoral canal. A brief Betadine soak was performed while trialing with head options. The hip was meticulously irrigated with normal saline. Finally the femoral head was impacted onto the stem. The acetabulum was cleared of all material and the hip relocated one final time. The capsulomuscular flap was then repaired to the greater trochanter though an awl hole using the tag sutures. The short external rotators were repaired with a nonabsorbable suture. Additional subcutaneous stitches were placed and the wound was closed in layers. The fascia sander was closed with Vicryl. The subcutaneous layer was closed with barbed sutures and skin ina. A kelly dressing was applied and the patient was taken to recovery having tolerated the procedure well. Complications: none Post-operative Condition: stable Disposition: Acute Care Plan for aftercare: The patient will be maintained on a standard total hip replacement protocol with weight bearing as tolerated and posterior hip precautions. The patient will receive Aspirin and sequential compression devices for DVT prophylaxis. The patient will be discharged home when safe for the home environment.
[2024-06-24] MEDS: ASPIRIN EC 81 MG TABLET PO (21:18)
[2024-06-24] MEDS: DOCUSATE 100 MG CAPSULE PO (21:19)
[2024-06-25 04:00] VITALS: BP 111/56; PULSE 58; RESP 17; TEMP 36.6; O2SAT 95
[2024-06-25] MEDS: ONDANSETRON 4 MG ODT PO (06:08)
[2024-06-25 06:30] LABS: Add Manual Diff / Slide Review NO; Basophils Absolute Auto 100 /uL (0-100); Basophils Percent Auto 0.5 % (0-2); Eosinophils Absolute Auto 0 /uL (0-450); Eosinophils Percent Auto 0.2 % (2-4); Hemoglobin 11.4 g/dL (12.0-16.0); Lymphocytes Absolute Auto 1400 /uL (1100-4500); Lymphocytes Percent Auto 12.7 % (25-40); Mean Corpuscular HGB Conc 34.4 % (30-36); Mean Corpuscular Volume 90.1 fL (80-100); Monocytes Absolute Auto 700 /uL (0-900); Monocytes Percent Auto 6.6 % (3-14); Neutrophils Absolute Auto 8600 /uL (1500-7000); Platelet Count 159 X10^3/uL (150-400); Red Blood Cell Count 3.66 X10^6/uL (4.0-5.2); Red Cell Distribution Width 14.3 % (11.6-14.8); White Blood Cell Count 10.7 X10^3/uL (4.5-11.0)
[2024-06-25 07:00] VITALS: BP 150/79; PULSE 85; RESP 16; TEMP 37; O2SAT 95
[2024-06-25 07:06] LABS: BUN Creatinine Ratio 15.6 (6-22); Blood Urea Nitrogen 10 mg/dL (7-17); Calcium 8.4 mg/dL (8.4-10.2); Carbon Dioxide 20 mmol/L (22-32); Chloride 104 mmol/L (98-107); Estimated Glomerular Filt Rate > 60 mL/min (>60); Glucose 124 mg/dL (80-110); HEMOLYSIS < 15 (0-50); Potassium 3.6 mmol/L (3.4-5.1); Sodium 130 mmol/L (137-145)
--- NOTE | 2024-06-25 07:57 | PM.PN.1 ---
Subjective Subjective Interval history: S: She was a lot more sore and weak since her hip surgery than she expected. Her pain control is reasonable. She accepts that she will likely need a rehabilitation stay. No dyspnea. Exam Vital Signs (past 8 hours): - 06/25/24 04:00 Temperature 97.8 F Pulse Rate 58 L Respiratory Rate 17 Blood Pressure 111/56 L Pulse Oximetry 95 Oxygen Flow Rate 0 Oxygen Delivery Method Room Air Oxygen Flow Rate 0 Narrative Exam Narrative: NAD, alert and oriented. Fluent speech. Lungs are clear, normal rate and effort. Heart is regular, no murmur gallop or rub. Abdomen is soft, non distended. Extremities are free of edema. Objective Labs 06/25/24 06:11 06/25/24 06:11 Labs: Laboratory Results - last 24 hr 06/25/24 06:11 WBC 10.7 RBC 3.66 L Hgb 11.4 L Hct 33.0 L MCV 90.1 MCH 31.0 MCHC 34.4 RDW 14.3 Plt Count 159 Neut % (Auto) 80.0 H Lymph % (Auto) 12.7 L [place] % (Auto) 6.6 Eos % (Auto) 0.2 L Baso % (Auto) 0.5 Neut # (Auto) 8600 H Lymph # (Auto) 1400 [place] # (Auto) 700 Eos # (Auto) 0 Baso # (Auto) 100 Sodium 130 L Potassium 3.6 Chloride 104 Carbon Dioxide 20 L BUN 10 Creatinine 0.64 Estimated GFR > 60 BUN/Creatinine Ratio 15.6 Glucose 124 H Calcium 8.4 PFSH Social History household members: spouse Smoking Status: Never smoker alcohol intake: current Assessment & Plan Assessment & Plan narrative: 1. Ground level fall, prior to admission. 2. Left femoral neck fracture, present on admission and active. 3. Osteoporosis, present on admission and active. 4. Intermittent vertigo, present on admission and not active. 5. Postoperative hypotension, new and improved. Plan: -analgesia -Operative repair on June 24. 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 -IV fluid bolus and monitor pressures. -monitor hemoglobin.. -DVT prophylaxis after surgery she will be aspirin b.i.d. unless indicated otherwise by Orthopedics. NESSA: 06/26. Full code. Inpatient status, a 2 [place] stay has occured. Time-Based Coding :: [TOTAL MINUTES] spent with patient and on the chart (including review of chart, obtaining history, exam, reviewing outside data, placing orders, documenting exam and treatment plan, and counseling patient) on [DATE].
[2024-06-25] MEDS: METOCLOPRAMIDE 10 MG/2 ML INJ 5 MG IV (08:52)
[2024-06-25 09:53] VITALS: O2SAT 96
--- NOTE | 2024-06-25 11:12 | PM.PNPO.1 ---
Subjective Subjective Interval history: Patient states she has pain and left leg weakness. She felt nauseous this morning but according to patient has pre-existing vestibular migraines which causes her to have nausea and lightheadedness. Exam Vital Signs (past 8 hours): - 06/25/24 04:00 06/25/24 07:00 06/25/24 09:53 Temperature 97.8 F 98.6 F Pulse Rate 58 L 85 Respiratory Rate 17 16 Blood Pressure 111/56 L 150/79 H Pulse Oximetry 95 95 96 Oxygen Delivery Method Room Air Oxygen Flow Rate 0 0 Oxygen Delivery Method Room Air Oxygen Flow Rate 0 Narrative Exam Narrative: Patient is resting comfortably in bed. Wearing an external jacket due to being cold. Patient has pain and diffulity flexing at the left hip. Dressing clean dry and intact. 5/5 strength in quadriceps, hamstrings, DF, PF, EHL bilaterally. Sensation to light touch intact throughout BLE. Calves soft, compressible, nontender. Objective Labs 06/25/24 06:11 06/25/24 06:11 Labs: Laboratory Results - last 24 hr 06/25/24 06:11 WBC 10.7 RBC 3.66 L Hgb 11.4 L Hct 33.0 L MCV 90.1 MCH 31.0 MCHC 34.4 RDW 14.3 Plt Count 159 Neut % (Auto) 80.0 H Lymph % (Auto) 12.7 L [place] % (Auto) 6.6 Eos % (Auto) 0.2 L Baso % (Auto) 0.5 Neut # (Auto) 8600 H Lymph # (Auto) 1400 [place] # (Auto) 700 Eos # (Auto) 0 Baso # (Auto) 100 Sodium 130 L Potassium 3.6 Chloride 104 Carbon Dioxide 20 L BUN 10 Creatinine 0.64 Estimated GFR > 60 BUN/Creatinine Ratio 15.6 Glucose 124 H Calcium 8.4 PFSH Social History household members: spouse Smoking Status: Never smoker alcohol intake: current Assessment & Plan Post-op Postoperative Procedures: Procedures Operation Date: 06/24/24 09:30 Actual Procedure Side Surgeon p left total hip arthroplasty Left Chasity Almanzar MD Postoperative day: 1 Postoperative status: doing well Postoperative plan narrative: Standard total hip replacement protocol with weight-bearing as tolerated and posterior hip precautions Aspirin 81 mg b.i.d. for DVT prophylaxis Multimodal pain management Mobilize with physical therapy Discharge when medically stable and safe for home environment Time Spent With Patient Time with patient: less than 15 minutes Quality VTE Deep Vein Thrombosis/Pulmonary Embolism Present on Admission: No
--- NOTE | 2024-06-25 11:15 | PT.IIE ---
Current Diagnoses Low back pain, unspecified (06/23/24) Fracture of unspecified part of neck of left femur, initial encounter for closed fracture (06/23/24) Sprain of unspecified ligament of right ankle, initial encounter (06/23/24) Surgery Performed Operation Date: 06/24/24 09:30 Actual Procedures p left total hip arthroplasty(Left) - Chasity Almanzar MD Physical Therapy Inpatient Evaluation/Re-Eval M1 PT/OT-IP Prior Functional Status Start: 06/25/24 12:53 Freq: NEEDED Status: Active Protocol: Document 06/25/24 11:15 AB (Rec: 06/25/24 13:06 AB [id number]) Medical Review Prior Functional Status Medical History Reviewed Yes Communication able to make needs known Mobility and Gait pt stated that she was independent with all mobilities and ambulation without AD Social History Household Members spouse Living Arrangements House Number of Floors (Floors) Two Floors Number of Stairs To Enter/Railing? pt stays on main level of the house 2 steps R rail ascending to enter the house Home Environment High Toilet,Walk in Shower Home Equipment Front Wheel Walker,Straight Cane,Hand Held Shower,Grab Bars In Shower M2 PT-IP Current Condition Start: 06/25/24 12:53 Freq: NEEDED Status: Active Protocol: Document 06/25/24 11:15 AB (Rec: 06/25/24 13:06 AB [id number]) Physical Therapy Current Condition Current Condition Evaluation Date 06/25/24 Treatment Diagnosis L hip fx s/p L ERIC posterior; difficulty in walking Onset Date 06/23/24 M3 PT-IP Subjective Start: 06/25/24 12:53 Freq: NEEDED Status: Active Protocol: Document 06/25/24 11:15 AB (Rec: 06/25/24 13:06 [id number]) Subjective Physical Therapy Visit Type Type Initial Evaluation Visit Start Time 11:15 Visit Stop Time 12:00 Number of LOSS CONTROL REPRESENTATIVE Visits 0 Physical Therapy Visit Comments Patient Comments agreeable to do PT Therapy Pain Assessment Pain When Pain Assessed During Mobility Pain Present Pain Present Pain Reported Location R ankle Scale Used pain scale not stated; with movement only Left Hip Scale Used pain scale not stated Pain Management Techniques Apply Cold,Distraction, Modification of Treatment,Re- positioning,Timing of Activity with Medications M4 PT-IP Mobility and Gait Start: 06/25/24 12:53 Freq: NEEDED Status: Active Protocol: Document 06/25/24 11:15 AB (Rec: 06/25/24 13:06 AB [id number]) PT-Bed Mobility Assessment Supine to Sit Supine to Sit Maximum Assistance PT-Transfer Assessment Sit to and From Stand Sit to and from Stand Maximum Assistance,1 Person Assistance,Use of Upper Extremities Equipment Transfer Assistive Device Gait Belt,Front Wheeled Walker Orthotic/Prosthetic Devices or Brace: No Transfers Transfer Destination Bedside Commode Transfer Technique Stand Step Pivot Transfer Ability Level of Assist Maximum Assistance,1 Person Assistance,2 Person Assistance ,Use of Upper Extremities Comments Mobility Comments pt supine in bed and agreeable to do PT. obtained PLOF and home set up. spouse arrived. educated pt and spouse regarding L posterior hip precautions. pt requesting to use the toilet. completed supine to sit max A and max cues. max A for scooting to EOB. bedside commode positioned next to pt. completed sit to stand max A x 1-2 and max cues for hip precautions. pt completed step transfer to commode using FWW max A and cues. sit to stand from bedside commode max A x 1-2 and cues and was able to maintain standing using FWW for support max A while nurse assists pt with hygiene care and brief management. pt completed step transfer to chair max A and max cues using FWW. refused ambulation but agreed to do it this afternoon . positioned pt on the chair. post-op folder provided and reviewed contents to pt and spouse. call light and table placed within reach. informed pt regarding SNF rehab and agreed. PT-Balance Assessment Sitting Balance and Reactions Static Sitting Balance Ability Good Dynamic Sitting Balance Ability Fair Standing Balance and Reactions Static Standing Balance Ability Poor Dynamic Standing Balance Ability Poor Device Used FWW M5 PT-IP Objective Assessments Start: 06/25/24 12:53 Freq: NEEDED Status: Active Protocol: Document 06/25/24 11:15 AB (Rec: 06/25/24 13:06 AB [id number]) Orientation Orientation/Cognition Level of Alertness Alert Orientation Name,Place,Situation Language Function Ability No Deficits Noted Safety Awareness Decreased Safety Awareness Memory Description Short Term Impaired Strength Lower Extremity Strength Assessment Left Impaired Hip 3-/5 Knee 3+/5 Sensation Assessment Sensation Gross Sensation WNL Muscle Tone Muscle Tone WNL Yes M6 PT-IP Treatment Start: 06/25/24 12:53 Freq: NEEDED Status: Active Protocol: Document 06/25/24 11:15 AB (Rec: 06/25/24 13:06 AB [id number]) Physical Therapy Treatment Education Education Provided Precautions,Weight Bearing Status,Post-Op Packet,Safety M7 PT-IP Assessment and Plan Start: 06/25/24 12:53 Freq: NEEDED Status: Active Protocol: Document 06/25/24 11:15 AB (Rec: 06/25/24 13:06 AB [id number]) PT Summary Assessment and Plan Potential Rehabilitation Potential Fair Status of Condition at Evaluation Evolving Summary Impairments Pain,ROM,Strength,Balance, Cognition,Bed Mobility, Transfers,Gait,Activity Tolerance Assessment Summary pt is a 74 y/o F s/o fall sustained a L femoral neck fx and underwent L ERIC posterior approach POD 1. pt has L hip posterior precautions and is WBAT. pt requiring max A 1-2 with bed mobility and transfers using FWW. Refused ambulation this session due to c/o fatigue and pain. pt will require SNF rehab to improve overall strength and mobility. Goals Bed Mobility Goal Minimal Assistance Transfer Goal Minimal Assistance,Front Wheeled Walker Gait Goal Minimal Assistance,Front Wheel Walker Gait Distance 50 Other Goals improve bed mobility, transfers, ambulation using FWW ~ 150 ft SBA up/down 2 steps R rail ascending SBA Days to Meet Goals 10 Frequency of Treatment Frequency Of Treatment Twice a Day Treatment Plan Physical Therapy Treatment Plan Bed Mobility Training,Transfer Training,Gait Training, Therapeutic Exercise,Balance Retraining,Post Op Education, Discharge Planning,Hot or Cold Pack,Neuromuscular Re-ed, Coordination Retraining,Manual Therapy Precautions Posterior Hip Precautions No Hip Flexion > 90 degrees,No Hip Internal Rotation,No Hip Adduction Weight Bearing Status Weight Bearing Status Weight Bear as Tolerated Allowed Weight Bearing Amount (enter % LLE WBAT or #) (%) Recommendations To Nursing Amount of Assist Needed 2 Person Assist Discharge Recommendations PT Discharge Recommendations SNF Rehab Transportation Needs at Discharge Wheelchair/Cabulance
[2024-06-25] MEDS: DOCUSATE 100 MG CAPSULE PO ×2 (12:11→20:35)
[2024-06-25] MEDS: ACETAMINOPHEN 325 MG TABLET 650 MG PO (12:12)
[2024-06-25] MEDS: ASPIRIN EC 81 MG TABLET PO ×2 (12:12→20:35)
--- NOTE | 2024-06-25 12:22 | CM.DPNOTE ---
DCP Note BANK ADVISOR reviewed EMR. Per PT/OT, rec SNF prior to returning home. Per hospitalist in morning rounds, pt agreeable to SNF and preference is [facility]. BANK ADVISOR met with partner and pt in room. Confirm preference is SNF and for [facility]. BANK ADVISOR answered questions to best of ability. BANK ADVISOR lvm with [facility] asking to review and submit for an [employer]et[employer] auth request for rehab. BANK ADVISOR completed PASRR. P: Anticipate SNF dc pending acceptance/aetna auth. CM team will continue to follow closely LATRELL Adamson
--- NOTE | 2024-06-25 13:51 | PT.IPTN ---
Current Diagnoses Low back pain, unspecified (06/23/24) Fracture of unspecified part of neck of left femur, initial encounter for closed fracture (06/23/24) Sprain of unspecified ligament of right ankle, initial encounter (06/23/24) Surgery Performed Operation Date: 06/24/24 09:30 Actual Procedures p left total hip arthroplasty(Left) - Chasity Almanzar MD Physical Therapy Treatment Note M2 PT-IP Current Condition Start: 06/25/24 12:53 Freq: NEEDED Status: Active Protocol: Document 06/25/24 11:15 AB (Rec: 06/25/24 13:06 AB [id number]) Physical Therapy Current Condition Current Condition Evaluation Date 06/25/24 Treatment Diagnosis L hip fx s/p L ERIC posterior; difficulty in walking Onset Date 06/23/24 M3 PT-IP Subjective Start: 06/25/24 12:53 Freq: NEEDED Status: Active Protocol: Document 06/25/24 14:08 TS (Rec: 06/25/24 14:11 TS [id number]) Subjective Physical Therapy Visit Type Type Treatment Note Visit Start Time 13:51 Visit Stop Time 14:01 Number of FAVOR MAKER Visits 1 Physical Therapy Visit Comments Patient Comments Pt refused OOB mobility, agreeable to ther-ex. Therapy Pain Assessment Pain When Pain Assessed During Mobility Pain Present Pain Present Pain Reported M4 PT-IP Mobility and Gait Start: 06/25/24 12:53 Freq: NEEDED Status: Active Protocol: Document 06/25/24 14:08 TS (Rec: 06/25/24 14:11 TS [id number]) PT-Transfer Assessment Comments Mobility Comments Not at this time M5 PT-IP Objective Assessments Start: 06/25/24 12:53 Freq: NEEDED Status: Active Protocol: Document 06/25/24 11:15 AB (Rec: 06/25/24 13:06 AB [id number]) Orientation Orientation/Cognition Level of Alertness Alert Orientation Name,Place,Situation Language Function Ability No Deficits Noted Safety Awareness Decreased Safety Awareness Memory Description Short Term Impaired Strength Lower Extremity Strength Assessment Left Impaired Hip 3-/5 Knee 3+/5 Sensation Assessment Sensation Gross Sensation WNL Muscle Tone Muscle Tone WNL Yes M6 PT-IP Treatment Start: 06/25/24 12:53 Freq: NEEDED Status: Active Protocol: Document 06/25/24 14:08 TS (Rec: 06/25/24 14:11 TS [id number]) Physical Therapy Treatment Exercises Exercises Ankle Pumps,Gluteal Sets,Quad Sets,Heel Slides Education Education Provided Precautions,Weight Bearing Status,Post-Op Packet,Safety M7 PT-IP Assessment and Plan Start: 06/25/24 12:53 Freq: NEEDED Status: Active Protocol: Document 06/25/24 14:08 TS (Rec: 06/25/24 14:11 TS [id number]) PT Summary Assessment and Plan Potential Rehabilitation Potential Fair Summary Impairments Pain,ROM,Strength,Balance, Cognition,Bed Mobility, Transfers,Gait,Activity Tolerance Progress Towards Goals Slow Progress due to Pain Assessment Summary Margaux was not agreeable to OOB mobility at this. She did agree to perform ther-ex of ankle pumps, quad sets, glute sets and heel slides. Pt was shown how to use gait belt to assit LLE with heel slides. She was educated in intensity and frequency of ther-ex. PT is recommending SNF. Goals Bed Mobility Goal Minimal Assistance Transfer Goal Minimal Assistance,Front Wheeled Walker Gait Goal Minimal Assistance,Front Wheel Walker Gait Distance 50 Other Goals improve bed mobility, transfers, ambulation using FWW ~ 150 ft SBA up/down 2 steps R rail ascending SBA Days to Meet Goals 10 Frequency of Treatment Frequency Of Treatment Twice a Day Treatment Plan Physical Therapy Treatment Plan Bed Mobility Training,Transfer Training,Gait Training, Therapeutic Exercise,Balance Retraining,Post Op Education, Discharge Planning,Hot or Cold Pack,Neuromuscular Re-ed, Coordination Retraining,Manual Therapy Precautions Posterior Hip Precautions No Hip Flexion > 90 degrees,No Hip Internal Rotation,No Hip Adduction Weight Bearing Status Weight Bearing Status Weight Bear as Tolerated Allowed Weight Bearing Amount (enter % LLE WBAT or #) (%) Recommendations To Nursing Amount of Assist Needed 2 Person Assist Discharge Recommendations PT Discharge Recommendations SNF Rehab Transportation Needs at Discharge Wheelchair/Cabulance
--- NOTE | 2024-06-25 14:05 | OT.IP.EVAL ---
Current Diagnoses Low back pain, unspecified (06/23/24) Fracture of unspecified part of neck of left femur, initial encounter for closed fracture (06/23/24) Sprain of unspecified ligament of right ankle, initial encounter (06/23/24) Surgery Performed Operation Date: 06/24/24 09:30 Actual Procedures p left total hip arthroplasty(Left) - Chasity Almanzar MD Occupational Therapy Inpatient Evaluation/Re-Eval M1 PT/OT-IP Prior Functional Status Start: 06/25/24 12:53 Freq: NEEDED Status: Active Protocol: Document 06/25/24 14:11 [facility] (Rec: 06/25/24 14:24 [facility] [id number]) Medical Review Prior Functional Status Medical History Reviewed Yes Communication able to make needs known Mobility and Gait pt stated that she was independent with all mobilities and ambulation without AD Activities of Daily Living and IADL's Completely independent with all ADL,IADL and drives. Social History Household Members spouse Living Arrangements House Number of Floors (Floors) Two Floors Number of Stairs To Enter/Railing? pt stays on main level of the house 2 steps R rail ascending to enter the house Home Environment High Toilet,Walk in Shower Home Equipment Front Wheel Walker,Straight Cane,Hand Held Shower,Grab Bars In Shower M2 OT-IP Current Condition Start: 06/25/24 14:10 Freq: Status: Active Protocol: Document 06/25/24 14:11 [facility] (Rec: 06/25/24 14:24 [facility] [id number]) Occupational Therapy Current Condition Current Condition Evaluation Date 06/25/24 Treatment Diagnosis S/P L ERIC posterior precautions Diagnosis Onset Date 06/23/24 Post Operative Precautions Posterior Hip Precautions No Hip Flexion > 90 degrees,No Hip Internal Rotation,No Hip Adduction M3 OT- IP Subjective and Pain Start: 06/25/24 14:10 Freq: Status: Active Protocol: Document 06/25/24 14:11 [facility] (Rec: 06/25/24 14:24 [facility] [id number]) OT- Subjective Occupational Therapy Visit Type Type Initial Evaluation Visit Start Time 13:45 Visit Stop Time 14:05 Occupational Therapy Visit Comments Patient Comments Pt agreed to participate in OT eval but wanting to rest afterwards. Patient/Caregiver Goals To go to skilled rehab. OT Pain Assessment Pain When Pain Assessed At Rest Pain Present Pain Present Denied Pain M4 OT- IP ADL's Start: 06/25/24 14:10 Freq: Status: Active Protocol: Document 06/25/24 14:11 [facility] (Rec: 06/25/24 14:24 [facility] [id number]) OT [id number]-Qtalqlq General Evaluation Self-Feeding Ability Independent OT ADL-Grooming Comments OT Grooming Comments Not performed. OT ADL-Oral Care Comments Oral Care Comments Not performed. OT ADL-Dressing Comments OT Dressing Comments Educated to dress the LLE first and take out last. Able to show pt LB dressing equipment. OT ADL-Toileting Comments OT Toileting Comments Spoke of to be mindful of her hip precautions when wiping and may be best to stand and wipe at this time of use of toilet paper aid. OT ADL-Bathing Comments OT Bathing Comments Pt will need a shower chair and assist. M5 OT- IP IADL's Start: 06/25/24 14:10 Freq: Status: Active Protocol: Document 06/25/24 14:11 [facility] (Rec: 06/25/24 14:24 [facility] [id number]) OT-Instrumental Activities of Daily Living Home Safety Awareness Awareness of Need for Assistance at Home Good Awareness Ability to Problem Solve Emergency Able to Problem Solve Situations Home Safety Comments Pt will need assist for all needs at this time. M6 OT- IP Functional Cognition Start: 06/25/24 14:10 Freq: Status: Active Protocol: Document 06/25/24 14:11 [facility] (Rec: 06/25/24 14:24 [facility] [id number]) Cognitive Factors Limiting Selfcare Function Cognitive Ability Level of Alertness Alert Patient Orientation Name,Age,Birthday,Month,Date, Year,Day of Week,Place, Situation Attention Span Ability Capable of Focused Attention, Capable of Sustained Attention Ability to Follow Commands Able to Follow One Step Commands Cognitive Comments Cognitive Assessment Comments Pt a tired and able to recall her hip precautions after initial education. pt states has had two prior falls in the past , one while was her feet getting tangle in cords and another while hitting the brick edging while running. OT- Vision and Hearing OT- Hearing Assessment OT- Hearing Assessment WFL OT- Vision Assessment Visual Acuity WFL M7 OT- IP Mobility and Balance Start: 06/25/24 14:10 Freq: Status: Active Protocol: Document 06/25/24 14:11 [facility] (Rec: 06/25/24 14:24 [facility] [id number]) OT- Bed Mobility Assessment Supine to Sit Supine to Sit Assist Maximum Assistance,1 Person Assistance Sit to Supine Sit to Supine Assist Maximum Assistance,1 Person Assistance OT-Transfer Assessment Comments Mobility Comments Pt needing MAX AX1 for do all bed mobility needs especially needing assist to help move her LLE. OT- Balance Assessment Sitting Balance and Reactions Static Sitting Balance Ability Good Dynamic Sitting Balance Ability Fair M8 OT- IP Objective Assessments Start: 06/25/24 14:10 Freq: Status: Active Protocol: Document 06/25/24 14:11 [facility] (Rec: 06/25/24 14:24 [facility] [id number]) OT Gross Range of Motion Upper Extremity Range of Motion ROM Impairments Grossly WFL, right third digit does not bend. Per pt states has arthritis. OT Strength Comments Strength Comments Grossly WFL for needs. M9 OT- IP Assessment and Plan Start: 06/25/24 14:10 Freq: Status: Active Protocol: Document 06/25/24 14:11 [facility] (Rec: 06/25/24 14:24 [facility] [id number]) OT Summary Assessment and Plan Potential Rehabilitation Potential Good Analytic Complexity at Evaluation Low Summary OT Impairments Pain,Range of Motion,Strength, Balance,Functional Mobility, Grooming,Dressing,Toileting, Bathing,Toilet Transfers, Shower Transfers,Activity Tolerance Progress Towards Goals Slow Progress due to Pain,Slow Progress due to Medical Issues,Slow Progress due to Activity Tolerance Assessment Summary Pt low complexity and main barriers are steps, needing 2 person assist for mobility and some ADL needs. Prior pt was completely independent for all needs before falling. Pt will greatly benefit from skilled rehab prior to going home. Goals Grooming Goal Independent Dressing Goal Independent,Long Handled Shoe Horn,Agricultural Produce Commission Agent,Sock Aid Toileting Goal Independent Bathing Goal Standby Assistance Toilet Transfer Goal Independent Shower Transfer Goal Standby Assistance Days to Meet Goals 15 Frequency of Treatment Other frequency 5x/week Treatment Plan OT Treatment Plan ADL Training,Functional Mobility,Patient/Family Education,Discharge Planning Discharge Recommendations OT Discharge Recommendations SNF Rehab Transportation Needs at Discharge Wheelchair/Cabulance
[2024-06-25 18:00] VITALS: BP 118/71; PULSE 87; RESP 16; TEMP 36.7; O2SAT 97
[2024-06-25] MEDS: IBUPROFEN 400 MG TABLET PO (19:56)
[2024-06-25] MEDS: OXYCODONE IR 5 MG TABLET PO (19:58)
[2024-06-25 20:00] VITALS: BP 111/56; PULSE 89; RESP 18; TEMP 37.1; O2SAT 97
[2024-06-25] MEDS: SODIUM CHLORIDE 0.9% FLUSH 10 ML IV (20:38)
[2024-06-26] VITALS (7 sets, daily range): BP systolic 93–108; BP diastolic 53–58; PULSE 80–89; RESP 17; TEMP 36.4–36.6; O2SAT 96–98
[2024-06-26] MEDS: IBUPROFEN 400 MG TABLET PO ×4 (04:57→21:20)
[2024-06-26] MEDS: OXYCODONE IR 5 MG TABLET PO ×4 (04:57→21:20)
[2024-06-26 06:01] LABS: Add Manual Diff / Slide Review NO; Basophils Absolute Auto 0 /uL (0-100); Basophils Percent Auto 0.2 % (0-2); Eosinophils Absolute Auto 100 /uL (0-450); Eosinophils Percent Auto 1.1 % (2-4); Hematocrit 30.8 % (36-46); Hemoglobin 10.5 g/dL (12.0-16.0); Lymphocytes Absolute Auto 1600 /uL (1100-4500); Lymphocytes Percent Auto 17.5 % (25-40); Mean Corpuscular HGB Conc 34.1 % (30-36); Mean Corpuscular Hemoglobin 31.1 PG (26-34); Mean Corpuscular Volume 91.1 fL (80-100); Monocytes Absolute Auto 900 /uL (0-900); Monocytes Percent Auto 9.4 % (3-14); Neutrophils Absolute Auto 6700 /uL (1500-7000); Neutrophils Percent Auto 71.8 % (50-75); Platelet Count 135 X10^3/uL (150-400); Red Blood Cell Count 3.39 X10^6/uL (4.0-5.2); Red Cell Distribution Width 14.4 % (11.6-14.8); White Blood Cell Count 9.4 X10^3/uL (4.5-11.0)
[2024-06-26 06:32] LABS: Calcium 8.4 mg/dL (8.4-10.2); Carbon Dioxide 24 mmol/L (22-32); Chloride 104 mmol/L (98-107); Glucose 104 mg/dL (80-110); HEMOLYSIS < 15 (0-50); Potassium 3.2 mmol/L (3.4-5.1); Sodium 133 mmol/L (137-145)
[2024-06-26 06:48] LABS: Blood Urea Nitrogen 14 mg/dL (7-17); Estimated Glomerular Filt Rate > 60 mL/min (>60)
--- NOTE | 2024-06-26 08:04 | PC.NURSE ---
Patient is alert and oriented x4, she states that she fell over some bricks at a quilting function. Patient was medicated a couple of hours ago and states that she is comfortable at this time. LS cta, heart rate regular. She has a kelly dressing in place to her left hip that is cdi with motor in her pocket and flashing green.
[2024-06-26] MEDS: DOCUSATE 100 MG CAPSULE PO ×2 (09:24→21:20)
[2024-06-26] MEDS: ASPIRIN EC 81 MG TABLET PO ×2 (09:24→21:21)
[2024-06-26] MEDS: ACETAMINOPHEN 325 MG TABLET 650 MG PO ×2 (09:25→17:20)
--- NOTE | 2024-06-26 09:31 | PM.PN.1 ---
Subjective Subjective Interval history: Subjective: She was improve. She was able to ambulate across the room today. No pain while in bed and 4/[address] Almanzar of orthopedics recommends no rehab, and returning home likely tomorrow. She also recommends outpatient rehabilitation. Exam Vital Signs (past 8 hours): - 06/26/24 04:00 Temperature 97.5 F L Pulse Rate 88 Respiratory Rate 17 Blood Pressure 108/58 L Pulse Oximetry 97 Oxygen Flow Rate 0 Oxygen Delivery Method Room Air Oxygen Flow Rate 0 Narrative Exam Narrative: NAD, alert and oriented. Fluent speech. Lungs are clear, normal rate and effort. Heart is regular, no murmur gallop or rub. Abdomen is soft, non distended. Extremities are free of edema. Left hip wound site is unremarkable. Objective Labs 06/26/24 04:35 06/26/24 04:35 Labs: Laboratory Results - last 24 hr 06/26/24 04:35 WBC 9.4 RBC 3.39 L Hgb 10.5 L Hct 30.8 L MCV 91.1 MCH 31.1 MCHC 34.1 RDW 14.4 Plt Count 135 L Neut % (Auto) 71.8 Lymph % (Auto) 17.5 L [place] % (Auto) 9.4 Eos % (Auto) 1.1 L Baso % (Auto) 0.2 Neut # (Auto) 6700 Lymph # (Auto) 1600 [place] # (Auto) 900 Eos # (Auto) 100 Baso # (Auto) 0 Sodium 133 L Potassium 3.2 L Chloride 104 Carbon Dioxide 24 BUN 14 Creatinine 0.70 Estimated GFR > 60 BUN/Creatinine Ratio 20.0 Glucose 104 Calcium 8.4 [facility] Social History household members: spouse Smoking Status: Never smoker alcohol intake: current Assessment & Plan Assessment & Plan narrative: 1. Ground level fall, prior to admission. 2. Left femoral neck fracture, present on admission and active. S/P ERIC. 3. Osteoporosis, present on admission and active. 4. Intermittent vertigo, present on admission and not active. 5. Postoperative hypotension, new and improved. Plan: -analgesia -continue physical therapy and occupational therapy. -DVT prophylaxis after surgery she will be aspirin b.i.d. unless indicated otherwise by Orthopedics. NESSA: 06/27. Anticipate home with a walker and outpatient PT. Full code. Inpatient status, a 2 MN stay has occured. Time-Based Coding :: [TOTAL MINUTES] spent with patient and on the chart (including review of chart, obtaining history, exam, reviewing outside data, placing orders, documenting exam and treatment plan, and counseling patient) on [DATE]. Quality VTE Deep Vein Thrombosis/Pulmonary Embolism Present on Admission: No
--- NOTE | 2024-06-26 10:35 | PT.IPTN ---
Current Diagnoses Low back pain, unspecified (06/23/24) Fracture of unspecified part of neck of left femur, initial encounter for closed fracture (06/23/24) Sprain of unspecified ligament of right ankle, initial encounter (06/23/24) Surgery Performed Operation Date: 06/24/24 09:30 Actual Procedures p left total hip arthroplasty(Left) - Chasity Almanzar MD Physical Therapy Treatment Note M2 PT-IP Current Condition Start: 06/25/24 12:53 Freq: NEEDED Status: Active Protocol: Document 06/25/24 11:15 AB (Rec: 06/25/24 13:06 AB [id number]) Physical Therapy Current Condition Current Condition Evaluation Date 06/25/24 Treatment Diagnosis L hip fx s/p L ERIC posterior; difficulty in walking Onset Date 06/23/24 M3 PT-IP Subjective Start: 06/25/24 12:53 Freq: NEEDED Status: Active Protocol: Document 06/26/24 11:00 TS (Rec: 06/26/24 11:17 TS [id number]) Subjective Physical Therapy Visit Type Type Treatment Note Visit Start Time 10:35 Visit Stop Time 10:58 Number of OCULAR PATHOLOGIST Visits 2 Physical Therapy Visit Comments Patient Comments Pt found up walking in room with spouse, she is agreeable to PT. Therapy Pain Assessment Pain When Pain Assessed During Mobility Pain Present Pain Present Pain Reported M4 PT-IP Mobility and Gait Start: 06/25/24 12:53 Freq: NEEDED Status: Active Protocol: Document 06/26/24 11:00 TS (Rec: 06/26/24 11:17 TS [id number]) PT-Bed Mobility Assessment Sit to Supine Sit to Supine Moderate Assistance PT-Transfer Assessment Sit to and From Stand Sit to and from Stand Minimal Assistance,1 Person Assistance,Use of Upper Extremities Equipment Transfer Assistive Device Gait Belt,Front Wheeled Walker Orthotic/Prosthetic Devices or Brace: No Comments Mobility Comments Pt recalls 2/3 hip precautions , did not recall int rotation. Caregiver training initiated. Spouse dons gait belt on pt sitting EOB. STS with FWW Narayan for slight posterior lean. She ambulates ~50' CGA with FWW and a slow step to gait. Sit to supine into bed ModA for LLE. Pt was left in bed, all needs met. She declined stair training at this time. Gait Assessment Gait Gait Assistance Required: Contact Guard Assist,1 Person Assist Distance (Feet) 50 Able to Maintain Weight Bearing Status Yes During Gait Assistive Devices Assistive Device Front Wheeled Walker Orthotic/Prosthetic Devices or Brace: No Gait Deviations General Gait Pattern Antalgic,Decreased Stride Length,Decreased Feet Clearance,Step-to Gait Factors Limiting Gait Function Factors Limiting Gait Function Decreased Activity Tolerance, Decreased Strength,Pain,Poor Balance PT-Balance Assessment Sitting Balance and Reactions Static Sitting Balance Ability Good Dynamic Sitting Balance Ability Fair Standing Balance and Reactions Static Standing Balance Ability Fair Dynamic Standing Balance Ability Fair Device Used FWW M5 PT-IP Objective Assessments Start: 06/25/24 12:53 Freq: NEEDED Status: Active Protocol: Document 06/25/24 11:15 AB (Rec: 06/25/24 13:06 AB [id number]) Orientation Orientation/Cognition Level of Alertness Alert Orientation Name,Place,Situation Language Function Ability No Deficits Noted Safety Awareness Decreased Safety Awareness Memory Description Short Term Impaired Strength Lower Extremity Strength Assessment Left Impaired Hip 3-/5 Knee 3+/5 Sensation Assessment Sensation Gross Sensation WNL Muscle Tone Muscle Tone WNL Yes M6 PT-IP Treatment Start: 06/25/24 12:53 Freq: NEEDED Status: Active Protocol: Document 06/26/24 11:00 TS (Rec: 06/26/24 11:17 TS [id number]) Physical Therapy Treatment Education Education Provided Precautions,Weight Bearing Status,Post-Op Packet,Safety M7 PT-IP Assessment and Plan Start: 06/25/24 12:53 Freq: NEEDED Status: Active Protocol: Document 06/26/24 11:00 TS (Rec: 06/26/24 11:17 TS [id number]) PT Summary Assessment and Plan Potential Rehabilitation Potential Fair Summary Impairments Pain,ROM,Strength,Balance, Cognition,Bed Mobility, Transfers,Gait,Activity Tolerance Progress Towards Goals Progressing Toward Goals Assessment Summary Margaux is making progress with her mobility. She requires decreased assist for bed mobility, STS and gait. She progressed her gait to ~50'CGA . She has some difficulty recalling her precautions, did not recall int rotation. PT is recommending home with 24/ assist and outpatient PT. Pt will need to complete stairs x2. Goals Bed Mobility Goal Minimal Assistance Transfer Goal Minimal Assistance,Front Wheeled Walker Gait Goal Minimal Assistance,Front Wheel Walker Gait Distance 50 Other Goals improve bed mobility, transfers, ambulation using FWW ~ 150 ft SBA up/down 2 steps R rail ascending SBA Days to Meet Goals 10 Frequency of Treatment Frequency Of Treatment Twice a Day Treatment Plan Physical Therapy Treatment Plan Bed Mobility Training,Transfer Training,Gait Training, Therapeutic Exercise,Balance Retraining,Post Op Education, Discharge Planning,Hot or Cold Pack,Neuromuscular Re-ed, Coordination Retraining,Manual Therapy Precautions Posterior Hip Precautions No Hip Flexion > 90 degrees,No Hip Internal Rotation,No Hip Adduction Weight Bearing Status Weight Bearing Status Weight Bear as Tolerated Allowed Weight Bearing Amount (enter % LLE WBAT or #) (%) Recommendations To Nursing Amount of Assist Needed 1 Person Assist Discharge Recommendations PT Discharge Recommendations SNF Rehab Transportation Needs at Discharge Wheelchair/Cabulance
--- NOTE | 2024-06-26 12:00 | CM.DPNOTE ---
Addendum entered by LATRELL Adamson 06/26/24 16:12: Per PRACTICE SPECIALIST Freddy, pt could benefit from HH. COMPUTER INFORMATION SYSTEMS INSTRUCTOR met with pt in room. Agreeable to HH. No preference for agency. Per pt, PCP is Dr. Go. COMPUTER INFORMATION SYSTEMS INSTRUCTOR spoke with Isidro from [facility], agreed to review. Likely can accept. P: dc home with spouse and HH for RN/PT/OT. f2f and orders needed. CM team will continue to follow SL Original Note: DCP Note COMPUTER INFORMATION SYSTEMS INSTRUCTOR reviewed EMR Per Cheryl at , able to accept will submit for auth. Per hospitalist in morning rounds, pt mobilizing better and Dr. Almanzar wants pt to dc home with OP PT. COMPUTER INFORMATION SYSTEMS INSTRUCTOR met with pt and spouse in room. Confirm did better with PT today, preference is to dc home. Deny other CM needs. COMPUTER INFORMATION SYSTEMS INSTRUCTOR cancelled referral with Tonie. P: dc home tomorrow with OP PT follow up and spouse support. CM team will continue to follow as needed LATRELL Adamson
[2024-06-26] MEDS: POTASSIUM CHLORIDE 20 MEQ TAB 40 MEQ PO (12:37)
--- NOTE | 2024-06-26 14:20 | PT.IPTN ---
Current Diagnoses Low back pain, unspecified (06/23/24) Fracture of unspecified part of neck of left femur, initial encounter for closed fracture (06/23/24) Sprain of unspecified ligament of right ankle, initial encounter (06/23/24) Surgery Performed Operation Date: 06/24/24 09:30 Actual Procedures p left total hip arthroplasty(Left) - Chasity Almanzar MD Physical Therapy Treatment Note M2 PT-IP Current Condition Start: 06/25/24 12:53 Freq: NEEDED Status: Active Protocol: Document 06/25/24 11:15 AB (Rec: 06/25/24 13:06 AB [id number]) Physical Therapy Current Condition Current Condition Evaluation Date 06/25/24 Treatment Diagnosis L hip fx s/p L ERIC posterior; difficulty in walking Onset Date 06/23/24 M3 PT-IP Subjective Start: 06/25/24 12:53 Freq: NEEDED Status: Active Protocol: Document 06/26/24 14:47 TS (Rec: 06/26/24 15:00 TS [id number]) Subjective Physical Therapy Visit Type Type Treatment Note Visit Start Time 14:20 Visit Stop Time 14:45 Number of RAMP ATTENDANT Visits 3 Physical Therapy Visit Comments Patient Comments Pt found sitting in chair, she is agreeable to PT. Therapy Pain Assessment Pain When Pain Assessed During Mobility Pain Present Pain Present Pain Reported Location Left Hip Intensity 2 Scale Used Numeric (0 - 10) Description Acute,With Movement Pain Behaviors Facial Grimacing Pain Management Techniques Timing of Activity with Medications M4 PT-IP Mobility and Gait Start: 06/25/24 12:53 Freq: NEEDED Status: Active Protocol: Document 06/26/24 14:47 TS (Rec: 06/26/24 15:00 TS [id number]) PT-Bed Mobility Assessment Sit to Supine Sit to Supine Minimal Assistance PT-Transfer Assessment Sit to and From Stand Sit to and from Stand Contact Guard Assistance,1 Person Assistance,Use of Upper Extremities Equipment Transfer Assistive Device Gait Belt,Front Wheeled Walker Orthotic/Prosthetic Devices or Brace: No Comments Mobility Comments Pt recalls 3/3 hip precautions . STS from the chair CGA with FWW. Pt ambulates ~100'SBA with slwo step to gait. Pt ambulates backto the room, sit to supine into bed ModA for Le's, spouse assists pt into bed. Pt scoots to HOB with cues for sequencing SBA. Pt was left in bed, all needs met . Gait Assessment Gait Gait Assistance Required: Contact Guard Assist,1 Person Assist Distance (Feet) 100 Able to Maintain Weight Bearing Status Yes During Gait Assistive Devices Assistive Device Front Wheeled Walker Gait Deviations General Gait Pattern Antalgic,Decreased Stride Length,Decreased Feet Clearance,Step-to Gait Factors Limiting Gait Function Factors Limiting Gait Function Decreased Activity Tolerance, Decreased Strength,Pain,Poor Balance PT-Balance Assessment Sitting Balance and Reactions Static Sitting Balance Ability Good Dynamic Sitting Balance Ability Fair Standing Balance and Reactions Static Standing Balance Ability Fair Dynamic Standing Balance Ability Fair Device Used FWW M5 PT-IP Objective Assessments Start: 06/25/24 12:53 Freq: NEEDED Status: Active Protocol: Document 06/25/24 11:15 AB (Rec: 06/25/24 13:06 AB [id number]) Orientation Orientation/Cognition Level of Alertness Alert Orientation Name,Place,Situation Language Function Ability No Deficits Noted Safety Awareness Decreased Safety Awareness Memory Description Short Term Impaired Strength Lower Extremity Strength Assessment Left Impaired Hip 3-/5 Knee 3+/5 Sensation Assessment Sensation Gross Sensation WNL Muscle Tone Muscle Tone WNL Yes M6 PT-IP Treatment Start: 06/25/24 12:53 Freq: NEEDED Status: Active Protocol: Document 06/26/24 14:47 TS (Rec: 06/26/24 15:00 TS [id number]) Physical Therapy Treatment Education Education Provided Precautions,Weight Bearing Status,Post-Op Packet,Safety M7 PT-IP Assessment and Plan Start: 06/25/24 12:53 Freq: NEEDED Status: Active Protocol: Document 06/26/24 14:47 TS (Rec: 06/26/24 15:00 TS [id number]) PT Summary Assessment and Plan Potential Rehabilitation Potential Fair Summary Impairments Pain,ROM,Strength,Balance, Cognition,Bed Mobility, Transfers,Gait,Activity Tolerance Progress Towards Goals Progressing Toward Goals Assessment Summary Margaux continues to make progress with her mobility. She progressed her gait to ~ 100'SBA with use of FWW. She demonstrates good awareness of her hip precautions and recalled 3/3. Spouse has been present for PT session and caregiver training has been initiated. PT will have pt do stairs in the morning with spouse. PT is recommending home with assist and HHPT. Goals Bed Mobility Goal Minimal Assistance Transfer Goal Minimal Assistance,Front Wheeled Walker Gait Goal Minimal Assistance,Front Wheel Walker Gait Distance 50 Other Goals improve bed mobility, transfers, ambulation using FWW ~ 150 ft SBA up/down 2 steps R rail ascending SBA Days to Meet Goals 10 Frequency of Treatment Frequency Of Treatment Twice a Day Treatment Plan Physical Therapy Treatment Plan Bed Mobility Training,Transfer Training,Gait Training, Therapeutic Exercise,Balance Retraining,Post Op Education, Discharge Planning,Hot or Cold Pack,Neuromuscular Re-ed, Coordination Retraining,Manual Therapy Precautions Posterior Hip Precautions No Hip Flexion > 90 degrees,No Hip Internal Rotation,No Hip Adduction Weight Bearing Status Weight Bearing Status Weight Bear as Tolerated Allowed Weight Bearing Amount (enter % LLE WBAT or #) (%) Recommendations To Nursing Amount of Assist Needed Standby Assistance Discharge Recommendations PT Discharge Recommendations Home with Assistance,Home Health Transportation Needs at Discharge Private Vehicle
--- NOTE | 2024-06-26 15:15 | P.PN_ITS ---
Subjective Subjective Date Patient Seen: 06/26/24 Time Patient Seen: 15:15 Interval history: Patient's pain is [id number]. Denies fever or chills. No nausea or vomiting. Exam Vital Signs (past 8 hours): - 06/26/24 08:31 06/26/24 08:32 Temperature 97.8 F Pulse Rate 89 Blood Pressure 107/57 L Pulse Oximetry 96 Oxygen Delivery Method Room Air Oxygen Flow Rate 0 Narrative Exam Narrative: 74-year-old female sitting up in bed in no apparent distress. Oscar dressing is on and functioning. Scant serosanguineous drainage on the dressing. Neurovascular status is intact bilateral lower extremities. Objective Labs 06/26/24 04:35 06/26/24 04:35 Labs: Laboratory Results - last 24 hr 06/26/24 04:35 WBC 9.4 RBC 3.39 L Hgb 10.5 L Hct 30.8 L MCV 91.1 MCH 31.1 MCHC 34.1 RDW 14.4 Plt Count 135 L Neut % (Auto) 71.8 Lymph % (Auto) 17.5 L [place] % (Auto) 9.4 Eos % (Auto) 1.1 L Baso % (Auto) 0.2 Neut # (Auto) 6700 Lymph # (Auto) 1600 [place] # (Auto) 900 Eos # (Auto) 100 Baso # (Auto) 0 Sodium 133 L Potassium 3.2 L Chloride 104 Carbon Dioxide 24 BUN 14 Creatinine 0.70 Estimated GFR > 60 BUN/Creatinine Ratio 20.0 Glucose 104 Calcium 8.4 PFSH Social History household members: spouse Smoking Status: Never smoker alcohol intake: current Assessment & Plan Post-op Postoperative Procedures: Procedures Operation Date: 06/24/24 09:30 Actual Procedure Side Surgeon p left total hip arthroplasty Left Chasity Almanzar MD Postoperative plan narrative: Standard total hip replacement protocol with weight-bearing as tolerated and posterior hip precautions Aspirin 81 mg b.i.d. for DVT prophylaxis Multimodal pain management Mobilize with physical therapy Discharge when medically stable and safe for home environment Quality VTE Deep Vein Thrombosis/Pulmonary Embolism Present on Admission: No
--- NOTE | 2024-06-26 15:50 | OT.IP.TRT ---
Current Diagnoses Low back pain, unspecified (06/23/24) Fracture of unspecified part of neck of left femur, initial encounter for closed fracture (06/23/24) Sprain of unspecified ligament of right ankle, initial encounter (06/23/24) Surgery Performed Operation Date: 06/24/24 09:30 Actual Procedures p left total hip arthroplasty(Left) - Chasity Almanzar MD Occupational Therapy Treatment Note M2 OT-IP Current Condition Start: 06/25/24 14:10 Freq: Status: Active Protocol: Document 06/25/24 14:11 [facility] (Rec: 06/25/24 14:24 [facility] [id number]) Occupational Therapy Current Condition Current Condition Evaluation Date 06/25/24 Treatment Diagnosis S/P L ERIC posterior precautions Diagnosis Onset Date 06/23/24 Post Operative Precautions Posterior Hip Precautions No Hip Flexion > 90 degrees,No Hip Internal Rotation,No Hip Adduction M3 OT- IP Subjective and Pain Start: 06/25/24 14:10 Freq: Status: Active Protocol: Document 06/26/24 15:52 [facility] (Rec: 06/26/24 16:06 [facility] [id number]) OT- Subjective Occupational Therapy Visit Type Type Treatment Note Visit Start Time 15:40 Visit Stop Time 15:50 Occupational Therapy Visit Comments Patient Comments Pt too tired to get up at this time as earlier up to the bathroom with nursing and walked in the hallway with CONTACT LENS FITTER . Pt agreed to talk to OT regarding OT equipment needs. Patient/Caregiver Goals To go home M4 OT- IP ADL's Start: 06/25/24 14:10 Freq: Status: Active Protocol: Document 06/26/24 15:52 [facility] (Rec: 06/26/24 16:06 [facility] [id number]) OT VYR-Hxpv-Gyqrzvm General Evaluation Self-Feeding Ability Independent OT ADL-Grooming General Evaluation Grooming Ability Independent OT ADL-Dressing Comments OT Dressing Comments Spoke of getting LB dressing equipment. OT ADL-Toileting Comments OT Toileting Comments Pt states looking to get toilet safety frame or grab bars for the toilet. Pt still may benefit from a BSC as well . OT ADL-Bathing Comments OT Bathing Comments Pt states the shower is probably too small for a shower chair and not wanting to get into the tub/shower at this time due to states to sponge off. Able to show pt pictures of how a tub bench would work. Pt would also benefit from installing a HHSP . M5 OT- IP IADL's Start: 06/25/24 14:10 Freq: Status: Active Protocol: Document 06/25/24 14:11 [facility] (Rec: 06/25/24 14:24 [facility] [id number]) OT-Instrumental Activities of Daily Living Home Safety Awareness Awareness of Need for Assistance at Home Good Awareness Ability to Problem Solve Emergency Able to Problem Solve Situations Home Safety Comments Pt will need assist for all needs at this time. M7 OT- IP Mobility and Balance Start: 06/25/24 14:10 Freq: Status: Active Protocol: Document 06/25/24 14:11 [facility] (Rec: 06/25/24 14:24 [facility] [id number]) OT- Bed Mobility Assessment Supine to Sit Supine to Sit Assist Maximum Assistance,1 Person Assistance Sit to Supine Sit to Supine Assist Maximum Assistance,1 Person Assistance OT-Transfer Assessment Comments Mobility Comments Pt needing MAX AX1 for do all bed mobility needs especially needing assist to help move her LLE. OT- Balance Assessment Sitting Balance and Reactions Static Sitting Balance Ability Good Dynamic Sitting Balance Ability Fair M8 OT- IP Objective Assessments Start: 06/25/24 14:10 Freq: Status: Active Protocol: Document 06/25/24 14:11 [facility] (Rec: 06/25/24 14:24 [facility] [id number]) OT Gross Range of Motion Upper Extremity Range of Motion ROM Impairments Grossly WFL, right third digit does not bend. OT Strength Comments Strength Comments Grossly WFL for needs. M9 OT- IP Assessment and Plan Start: 06/25/24 14:10 Freq: Status: Active Protocol: Document 06/26/24 15:52 [facility] (Rec: 06/26/24 16:06 [facility] [id number]) OT Summary Assessment and Plan Potential Rehabilitation Potential Good Analytic Complexity at Evaluation Low Summary OT Impairments Pain,Range of Motion,Strength, Balance,Functional Mobility, Grooming,Dressing,Toileting, Bathing,Toilet Transfers, Shower Transfers,Activity Tolerance Progress Towards Goals Progressing Toward Goals Assessment Summary Pt not wanting to get up as too tired from just seeing CONTACT LENS FITTER and use of the bathroom earlier with nursing. Able to go over OT equipment needs and possibly do showering tomorrow with pt and her prior to going home. Pt states will just sponge off at home for now. Pt to go home with 24/7 assist and home health. Goals Grooming Goal Independent Dressing Goal Independent,Long Handled Shoe Horn,Acid Strength Inspector,Sock Aid Toileting Goal Independent Bathing Goal Standby Assistance Toilet Transfer Goal Independent Shower Transfer Goal Standby Assistance Days to Meet Goals 10 Frequency of Treatment Other frequency 5x/week Treatment Plan OT Treatment Plan ADL Training,Functional Mobility,Patient/Family Education,Discharge Planning Discharge Recommendations OT Discharge Recommendations Home with 24/7 Assist Available,Home Health Transportation Needs at Discharge Private Vehicle
[2024-06-26] MEDS: SODIUM CHLORIDE 0.9% FLUSH 10 ML IV (21:21)
[2024-06-27 04:00] VITALS: BP 123/57; PULSE 81; RESP 20; TEMP 36.8; O2SAT 98
[2024-06-27 08:00] VITALS: BP 109/58; PULSE 87; RESP 15; TEMP 37.1; O2SAT 97
--- NOTE | 2024-06-27 08:30 | PM.PNPO.1 ---
Subjective Subjective Interval history: Patient states that she is feeling better today. Pain is uncontrolled with oral medications. Her left leg is improving each day she is starting to increase her range of motion and strength. She is ready to be discharged home. Exam Vital Signs (past 8 hours): - 06/27/24 04:00 Temperature 98.3 F Pulse Rate 81 Respiratory Rate 20 Blood Pressure 123/57 L Pulse Oximetry 98 Oxygen Flow Rate 0 Oxygen Delivery Method Room Air Oxygen Flow Rate 0 Narrative Exam Narrative: Patient found sitting comfortably in bed. She is already dressed in street close. Dressed kelly dressing is well-maintained and functioning. Minor spots of blood seeping through bandage. 5/5 EHL, DF, PF, quads and hamstring strength bilaterally. Sensation intact to light touch bilateral lower extremities. Resp Effort & Inspection: normal respiratory effort and able to speak in complete sentences Objective Labs 06/26/24 04:35 06/26/24 04:35 PFSH Social History household members: spouse Smoking Status: Never smoker alcohol intake: current Assessment & Plan Post-op Postoperative Procedures: Procedures Operation Date: 06/24/24 09:30 Actual Procedure Side Surgeon p left total hip arthroplasty Left Chasity Almanzar MD Postoperative day: 3 Postoperative status: doing well Postoperative plan: discharge Postoperative plan narrative: Plan to discharge to home today if medically stable by Hospitalist. Aspirin 81 mg twice daily for VTE prevention. Baseline Multimodal pain control with ibuprofen 400 mg and acetaminophen 500 mg every 4 hours as needed. Posterior hip precautions. Ordering outpatient physical therapy for left hip ERIC. Follow-up in clinic in 2 weeks for wound check. Time Spent With Patient Time with patient: 15-24 minutes Quality VTE Deep Vein Thrombosis/Pulmonary Embolism Present on Admission: No
[2024-06-27] MEDS: ASPIRIN EC 81 MG TABLET PO (08:40)
[2024-06-27] MEDS: OXYCODONE IR 5 MG TABLET PO (08:40)
[2024-06-27] MEDS: ACETAMINOPHEN 325 MG TABLET 650 MG PO (08:41)
[2024-06-27] MEDS: DOCUSATE 100 MG CAPSULE PO (08:41)
[2024-06-27] MEDS: IBUPROFEN 400 MG TABLET PO (08:42)
--- NOTE | 2024-06-27 08:58 | PT.IPTN ---
Current Diagnoses Low back pain, unspecified (06/23/24) Fracture of unspecified part of neck of left femur, initial encounter for closed fracture (06/23/24) Sprain of unspecified ligament of right ankle, initial encounter (06/23/24) Surgery Performed Operation Date: 06/24/24 09:30 Actual Procedures p left total hip arthroplasty(Left) - Chasity Almanzar MD Physical Therapy Treatment Note M2 PT-IP Current Condition Start: 06/25/24 12:53 Freq: NEEDED Status: Active Protocol: Document 06/25/24 11:15 AB (Rec: 06/25/24 13:06 AB [id number]) Physical Therapy Current Condition Current Condition Evaluation Date 06/25/24 Treatment Diagnosis L hip fx s/p L ERIC posterior; difficulty in walking Onset Date 06/23/24 M3 PT-IP Subjective Start: 06/25/24 12:53 Freq: NEEDED Status: Active Protocol: Document 06/27/24 09:23 TS (Rec: 06/27/24 09:32 TS [id number]) Subjective Physical Therapy Visit Type Type Treatment Note Visit Start Time 08:58 Visit Stop Time 09:22 Number of TRANSFER PROFESSOR Visits 4 Physical Therapy Visit Comments Patient Comments Pt found resting in bed, she is agreeable to PT. Therapy Pain Assessment Pain When Pain Assessed During Mobility Pain Present Pain Present Pain Reported M4 PT-IP Mobility and Gait Start: 06/25/24 12:53 Freq: NEEDED Status: Active Protocol: Document 06/27/24 09:23 TS (Rec: 06/27/24 09:32 TS [id number]) PT-Bed Mobility Assessment Supine to Sit Supine to Sit Minimal Assistance,1 Person Assistance Scooting Scooting to Edge of Bed Minimal Assistance PT-Transfer Assessment Sit to and From Stand Sit to and from Stand Contact Guard Assistance,1 Person Assistance,Use of Upper Extremities Equipment Transfer Assistive Device Gait Belt,Front Wheeled Walker Orthotic/Prosthetic Devices or Brace: No Comments Mobility Comments Supine to sit Narayan for uprighting self to EOB. STS with FWW CGA. She ambulates ~ 10' in the room CGA/SBA. She performs stairs Narayan from spouse and use of counter top, pt requires cues for step sequencing. Gait Assessment Gait Gait Assistance Required: Standby Assistance,Contact Guard Assist,1 Person Assist Distance (Feet) 10 Able to Maintain Weight Bearing Status Yes During Gait Assistive Devices Assistive Device Front Wheeled Walker Gait Deviations General Gait Pattern Antalgic,Decreased Stride Length,Decreased Feet Clearance,Step-to Gait Factors Limiting Gait Function Factors Limiting Gait Function Decreased Activity Tolerance, Decreased Strength,Pain,Poor Balance Stair Climbing Assessment Evaluation Level of Assist On Stairs Minimal Assistance,1 Person Assistance Devices Stair Climbing Assistive Devices Left Railing,Right Railing Technique/Endurance Stair Climbing Direction Ascend and Descend Stair Climbing Technique Step to Step Number of Steps Climbed 2 PT-Balance Assessment Sitting Balance and Reactions Static Sitting Balance Ability Good Dynamic Sitting Balance Ability Fair Standing Balance and Reactions Static Standing Balance Ability Fair Dynamic Standing Balance Ability Fair Device Used FWW M5 PT-IP Objective Assessments Start: 06/25/24 12:53 Freq: NEEDED Status: Active Protocol: Document 06/25/24 11:15 AB (Rec: 06/25/24 13:06 AB [id number]) Orientation Orientation/Cognition Level of Alertness Alert Orientation Name,Place,Situation Language Function Ability No Deficits Noted Safety Awareness Decreased Safety Awareness Memory Description Short Term Impaired Strength Lower Extremity Strength Assessment Left Impaired Hip 3-/5 Knee 3+/5 Sensation Assessment Sensation Gross Sensation WNL Muscle Tone Muscle Tone WNL Yes M6 PT-IP Treatment Start: 06/25/24 12:53 Freq: NEEDED Status: Active Protocol: Document 06/27/24 09:23 TS (Rec: 06/27/24 09:32 [id number]) Physical Therapy Treatment Education Education Provided Precautions,Weight Bearing Status,Post-Op Packet,Safety M7 PT-IP Assessment and Plan Start: 06/25/24 12:53 Freq: NEEDED Status: Active Protocol: Document 06/27/24 09:23 TS (Rec: 06/27/24 09:32 [id number]) PT Summary Assessment and Plan Potential Rehabilitation Potential Fair Summary Impairments Pain,ROM,Strength,Balance, Cognition,Bed Mobility, Transfers,Gait,Activity Tolerance Progress Towards Goals Progressing Toward Goals Assessment Summary Margaux continues to do well with her mobility. She progressed to stairs x2 with use of B handrails. She has some diffiuclty with stairs due to increased wbering on L hip. Spouse was instructed in bed mobility, STS's, gait and stair training. PT is recommendig home with assist and HHPT. Pt should progress to outpatient. Goals Bed Mobility Goal Minimal Assistance Transfer Goal Minimal Assistance,Front Wheeled Walker Gait Goal Minimal Assistance,Front Wheel Walker Gait Distance 50 Other Goals improve bed mobility, transfers, ambulation using FWW ~ 150 ft SBA up/down 2 steps R rail ascending SBA Days to Meet Goals 10 Frequency of Treatment Frequency Of Treatment Twice a Day Treatment Plan Physical Therapy Treatment Plan Bed Mobility Training,Transfer Training,Gait Training, Therapeutic Exercise,Balance Retraining,Post Op Education, Discharge Planning,Hot or Cold Pack,Neuromuscular Re-ed, Coordination Retraining,Manual Therapy Precautions Posterior Hip Precautions No Hip Flexion > 90 degrees,No Hip Internal Rotation,No Hip Adduction Weight Bearing Status Weight Bearing Status Weight Bear as Tolerated Allowed Weight Bearing Amount (enter % LLE WBAT or #) (%) Recommendations To Nursing Amount of Assist Needed 1 Person Assist Discharge Recommendations PT Discharge Recommendations Home with Assistance,Home Health Transportation Needs at Discharge Private Vehicle
--- NOTE | 2024-06-27 09:09 | PC.NURSE ---
Patients kelly dressing to her l.hip is cdi, motor flashing green. CMS wnl to l.hip, patient is a one person assist with walker to the bathroom and walking. Medicated with oxycodone, tylenol, and ibuprofen. She is visiting with her and worked with physical therapy.
--- NOTE | 2024-06-27 09:42 | P.DS_ITS ---
History of Present Illness History of Present Illness Chief complaint: GLF, L hip pain Narrative: The patient is a 74-year-old female with a past history of vertigo who fell today. She was moving quickly and then tripped over a garden hose and landed on her left hip. She had immediate pain and inability to get up, move or stand. She was brought to the emergency department where a radiograph confirmed a left hip fracture. Orthopedics was consulted, they have confirmed repair tomorrow, June 24. The patient was given pain medication in the emergency department has no other apparent injuries. She was no history of headache or neck pain. She does take alendronate for osteoporosis 70 mg weekly. She does have a history of vertigo and takes occasional meclizine for this problem. ED course: Pain medications were given and imaging confirmed hip fracture, Orthopedics was consulted. She has good pain control upon transfer to the floor. Discharge Providers Provider Date of admission: 06/23/24 14:42 Discharge Date: 06/27/24 Primary care physician: Zonia Mike PA-C Consults: 06/24/24 08:02 Consult to Orthopedic Surgery Routine Comment: Consulting Provider: Chasity Almanzar Reason for consultation: hip fracture Has provider been notified: Yes 06/24/24 11:17 Consult to Anesthesiology Routine Comment: Consulting Provider: Anesthesiologist Reason for consultation: Regional block for post operative pain control 06/24/24 15:13 Consult to Discharge Planning Routine Comment: Consult to Occupational Therapy Evaluate & Treat Comment: Physician Instructions: Evaluate and treat Consult to Physical Therapy Evaluate & Treat Comment: Physician Instructions: post op ERIC protocol 06/27/24 08:59 Consult to Home Health Routine Comment: Reason For Exam: RN/PT/OT Discharge provider: Ham Oneil MD Summary Hospital Course Discharge Diagnosis: 1. Ground level fall, prior to admission. 2. Left femoral neck fracture, present on admission and active. S/P ERIC. 3. Osteoporosis, present on admission and active. 4. Intermittent vertigo, present on admission and not active. 5. Postoperative hypotension, new and improved. Hospital Course: The patient presented with a fall and a hip fracture. She ultimately underwent a left total hip arthroplasty with posterior approach. In the postoperative phase she had a lot of pain and mobility issues the 1st 2 days but then rapidly improved. She was able to to progress with physical therapy to the point of being safe for discharge home with outpatient physical therapy using a walker. She will use aspirin b.i.d. for DVT prophylaxis. Exam Vital Signs (past 8 hours): - 06/27/24 04:00 06/27/24 08:00 Temperature 98.3 F 98.8 F Pulse Rate 81 87 Respiratory Rate 20 15 Blood Pressure 123/57 L 109/58 L Pulse Oximetry 98 97 Oxygen Flow Rate 0 0 Oxygen Delivery Method Room Air Oxygen Flow Rate 0 Objective Imaging Multiple studies:: Radiologist's impression: Ankle x-ray: No acute osseous abnormality Hip x-ray: Transcervical fracture through the left femoral neck. Labs 06/26/24 04:35 06/26/24 04:35 [facility] Social History household members: spouse Smoking Status: Never smoker alcohol intake: current Discharge Assessment & Plan Assessment and Plan Assessment: 1. Ground level fall, prior to admission. 2. Left femoral neck fracture, present on admission and active. S/P ERIC. 3. Osteoporosis, present on admission and active. 4. Intermittent vertigo, present on admission and not active. 5. Postoperative hypotension, new and improved. Plan of Treatment: Discharge home, outpatient PT. Aspirin b.i.d. for at least 14 days for DVT prophylaxis. Oxycodone for pain. Orthopedic follow up as scheduled. Discharge Plan Discharge Plan Patient Disposition: Home Provider Discharge Comment: Stable for discharge home with outpatient physical therapy and close orthopedic follow up. Discharge orders & Medications Prescriptions: New aspirin 81 mg Tablet,Delayed Release (Dr/Ec) 81 mg PO BID Qty: 60 0RF oxycodone 5 mg Tablet 5 mg PO Q3H PRN (Reason: Pain, Moderate (4-6)) Qty: 20 0RF Continued meclizine 25 mg tablet 25 mg PO BID-TID PRN (Reason: dizziness) Qty: 14 0RF Follow up/Referrals: Zonia Mike PA-C [Primary Care Provider] - Diet/Activity/Treatments Diet: Regular Activity: As tolerated, with walker. Skin/Wound/Dressing Care Report to your healthcare provider any signs of infection, such as:: increased pain, unusual drainage and unusual redness Visit Report/Discharge Packet Instructions: DI for Hip Replacement, DI for Prescription Opioid Use Stand Alone Forms: Patient Portal/API Discharge Data Primary Care Provider: Zonia Mike VTE Deep Vein Thrombosis/Pulmonary Embolism Present on Admission: No MIPS - DC The patient has a history of heart transplant or Left Ventricular Assist Device (LVAD). If yes, STOP here.: No A. The patient was prescribed or already taking an Angiotensin-Converting Enzyme (RONA) Inhibitor, or Angiotensin Receptor Juliet (ARB).: No
--- NOTE | 2024-06-27 10:15 | OT.IP.TRT ---
Current Diagnoses Low back pain, unspecified (06/23/24) Fracture of unspecified part of neck of left femur, initial encounter for closed fracture (06/23/24) Sprain of unspecified ligament of right ankle, initial encounter (06/23/24) Surgery Performed Operation Date: 06/24/24 09:30 Actual Procedures p left total hip arthroplasty(Left) - Chasity Almanzar MD Occupational Therapy Treatment Note M2 OT-IP Current Condition Start: 06/25/24 14:10 Freq: Status: Active Protocol: Document 06/25/24 14:11 [facility] (Rec: 06/25/24 14:24 [facility] [id number]) Occupational Therapy Current Condition Current Condition Evaluation Date 06/25/24 Treatment Diagnosis S/P L ERIC posterior precautions Diagnosis Onset Date 06/23/24 Post Operative Precautions Posterior Hip Precautions No Hip Flexion > 90 degrees,No Hip Internal Rotation,No Hip Adduction M3 OT- IP Subjective and Pain Start: 06/25/24 14:10 Freq: Status: Active Protocol: Document 06/27/24 10:56 [facility] (Rec: 06/27/24 11:04 [facility] [id number]) OT- Subjective Occupational Therapy Visit Type Type Treatment Note Visit Start Time 10:15 Visit Stop Time 10:48 Occupational Therapy Visit Comments Patient Comments Pt too tired to get up as just completed PT and agreed to go over OT equipment needs and techniques to follow her posterior hip precautions. Patient/Caregiver Goals TO go home. OT Pain Assessment Pain When Pain Assessed At Rest Pain Present Pain Present Denied Pain M4 OT- IP ADL's Start: 06/25/24 14:10 Freq: Status: Active Protocol: Document 06/27/24 10:56 [facility] (Rec: 06/27/24 11:04 [facility] [id number]) OT ADL-Dressing General Eval Lower Body Dressing Ability Standby Assistance Comments OT Dressing Comments Able to practice use of LB dressing equipment and pt states will have her assist or obtain equipment . OT ADL-Toileting Comments OT Toileting Comments Spoke again of BSC, toilet safety frame etc for bathroom needs. Pt states her to assist or looking into ordering equipment. OT ADL-Bathing Comments OT Bathing Comments Pt states to get a shower stool for the shower. Spoke of covering the dressing and being sure to wash around it. Pt will benefit from a bath aid. M5 OT- IP IADL's Start: 06/25/24 14:10 Freq: Status: Active Protocol: Document 06/25/24 14:11 [facility] (Rec: 06/25/24 14:24 [facility] [id number]) OT-Instrumental Activities of Daily Living Home Safety Awareness Awareness of Need for Assistance at Home Good Awareness Ability to Problem Solve Emergency Able to Problem Solve Situations Home Safety Comments Pt will need assist for all needs at this time. M6 OT- IP Functional Cognition Start: 06/25/24 14:10 Freq: Status: Active Protocol: Document 06/27/24 10:56 [facility] (Rec: 06/27/24 11:04 [facility] [id number]) Cognitive Factors Limiting Selfcare Function Cognitive Comments Cognitive Assessment Comments Pt able to recall 2/3 hip precautions and needing encouragement and techniques to remember so able to incorporate with her hip precautions. M7 OT- IP Mobility and Balance Start: 06/25/24 14:10 Freq: Status: Active Protocol: Document 06/27/24 10:56 [facility] (Rec: 06/27/24 11:04 [facility] [id number]) OT- Balance Assessment Sitting Balance and Reactions Static Sitting Balance Ability Normal Dynamic Sitting Balance Ability Good M8 OT- IP Objective Assessments Start: 06/25/24 14:10 Freq: Status: Active Protocol: Document 06/25/24 14:11 [facility] (Rec: 06/25/24 14:24 [facility] [id number]) OT Gross Range of Motion Upper Extremity Range of Motion ROM Impairments Grossly WFL, right third digit does not bend. OT Strength Comments Strength Comments Grossly WFL for needs. M9 OT- IP Assessment and Plan Start: 06/25/24 14:10 Freq: Status: Active Protocol: Document 06/27/24 10:56 [facility] (Rec: 06/27/24 11:04 [facility] [id number]) OT Summary Assessment and Plan Potential Rehabilitation Potential Good Analytic Complexity at Evaluation Low Summary OT Impairments Pain,Range of Motion,Strength, Balance,Functional Mobility, Grooming,Dressing,Toileting, Bathing,Toilet Transfers, Shower Transfers,Activity Tolerance Progress Towards Goals Progressing Toward Goals Assessment Summary Able to go over equipment needs, OT safety suggestions for her hip precautions, and pt states afterwards feel more relieved about going home. Pt will benefit from home health and bath aid. Goals Grooming Goal Independent Dressing Goal Independent,Long Handled Shoe Horn,Crew Mess Attendant,Sock Aid Toileting Goal Independent Bathing Goal Standby Assistance Toilet Transfer Goal Independent Shower Transfer Goal Standby Assistance Days to Meet Goals 10 Frequency of Treatment Other frequency 5x/week Treatment Plan OT Treatment Plan ADL Training,Functional Mobility,Patient/Family Education,Discharge Planning Discharge Recommendations OT Discharge Recommendations Home with 09/04 Assist Available,Home Health Transportation Needs at Discharge Private Vehicle
--- NOTE | 2024-06-27 11:20 | CM.DPNOTE ---
Addendum entered by LATRELL Adamson 06/27/24 15:46: Isidro from [facility] kindly asked for this MOISTURE MACHINE TENDER to amend f2f that had a mistake. MOISTURE MACHINE TENDER amended and emailed to MIGUEL Felix Original Note: DCP Note MOISTURE MACHINE TENDER reviewed EMR. placed HH order and completed f2f. Gave to CC kerri to scan into chart. Per hospitalist in morning rounds, pt cleared to dc home today. MOISTURE MACHINE TENDER met with pt and spouse in room. Preference is to dc home today with [facility]. Deny other questions from this CM team. Per OT, pt wants Bath aide added to HH. MOISTURE MACHINE TENDER emailed Isidro at [facility] to ask if they would not mind adding a bath aide to the HH order. P: dc today with spouse support and [facility] to follow for RN/PT/OT/Bath Aide services. CM team will continue to follow as needed LATRELL Adamson
--- NOTE | 2024-07-16 01:07 | PC.NURSE ---
late entry note for 10/8 med given during down time on [employer], please refer to paper charting
== END 2024-06-27 12:58 | disposition home health service (06) | DRG 522 ==
LOC: ED 13:31 → AC 14:42 → ICU 16:06
PROVIDERS: Orthopaedic Surgery; Admitting Provider Hospitalist; Emergency Provider Emergency Medicine; PCP Student in an Organized Health Care Education/Training Program; Referring Provider Emergency Medicine; Visit Provider Hospitalist
PROC: 0SRS0JZ Replacement of Left Hip Joint, Femoral Surface with Synthetic Substitute, Open Approach (ICD-10-PCS; CPT 27125; principal; 2024-06-24 09:30)
DX: M80.052A Age-related osteoporosis with current pathological fracture, left femur, initial encounter for fracture (principal); R42 Dizziness and giddiness; I95.81 Postprocedural hypotension; S93.401A Sprain of unspecified ligament of right ankle, initial encounter; W18.30XA Fall on same level, unspecified, initial encounter; Z91.81 History of falling
CPT/HCPCS: 36415; 72170; 73502; 73610; 80048; 80053; 82550; 84484; 85025; 93005; 93010; 96374; 96375; 97110; 97116; 97162; 97165; 97530; 97535; 99284; 99285; C1776; C9290; J0171; J1171; J2250; J2270; J2405; J2704; J2765; J3010